=== PATIENT | female | born 1965 | race Caucasian/White ===

== ENCOUNTER → 2016-12-06 | Day surgery (SDC) | payer OTHER ==
[2016-12-04 15:00] LABS: BILIRUBIN NEGATIVE (NEGATIVE); BLOOD NEGATIVE (NEGATIVE); CLARITY CLOUDY (CLEAR); COLOR YELLOW (YELLOW); GLUCOSE NEGATIVE (NEGATIVE); KETONE NEGATIVE (NEGATIVE); LEUKO ESTERASE TRACE (NEGATIVE); NITRITE NEGATIVE (NEGATIVE); PH 5.5 (5.0-9.0); PROTEIN NEGATIVE (NEGATIVE); SPECIFIC GRAVITY 1.025 (1.005-1.030); UROBILINOGEN 0.2 E.U./dl (0.2-1.0)
[2016-12-04 15:07] LABS: BASO # 0.1 10*3/uL (0.0-0.1); BASO % 0.9 % (0.0-1.0); EOS # 0.3 10*3/uL (0.0-0.4); EOS % 3.1 % (1.0-4.0); HEMATOCRIT 41.6 % (37.0-47.0); HEMOGLOBIN 13.5 g/dl (12.0-16.0); LYMPH # 2.8 10*3/uL (1.3-4.4); LYMPH % 31.3 % (27.0-41.0); MEAN CELL VOLUME 88.9 fl (81.0-99.0); MEAN CORPUSCULAR HGB 28.8 pg (27.0-31.0); MEAN CORPUSCULAR HGB CONC 32.5 g/dl (33.0-37.0); MEAN PLATELET VOLUME 10.8 fl (9.6-12.3); MONO # 0.5 10*3/uL (0.1-1.0); MONO % 5.3 % (3.0-9.0); NEUT # 5.3 10*3/uL (2.3-7.9); NEUT % 59.1 % (47.0-73.0); PLATELET COUNT AUTOMATED 255 10*3/uL (130-400); RED BLOOD COUNT 4.68 10*6/uL (4.10-5.10); RED CELL DISTRI WIDTH 13.1 % (0-14.5)
[2016-12-04 15:22] LABS: BACTERIA 3+; YEAST 1+
[2016-12-04 15:34] LABS: ALBUMIN 3.4 gm/dl (3.1-4.5); ALKALINE PHOSPHATASE 84 U/L (45-117); BILIRUBIN, TOTAL 0.2 mg/dl (0.2-1.0); BUN 10 mg/dl (7-24); CARBON DIOXIDE 30 mmol/L (21-32); CHLORIDE 105 mmol/L (98-107); EST GLOM FILT AFRICAN AMERICAN > 60 ml/min; GLUCOSE 108 mg/dL (65-99); POTASSIUM 4.4 mmol/L (3.5-5.1); SGOT/AST 18 IU/L (3-35); SGPT/ALT 24 U/L (12-78); SODIUM 143 mmol/L (136-145); TOTAL PROTEIN 7.3 gm/dL (6.4-8.2)
[2016-12-04 15:35] LABS: BILIRUBIN, DIRECT < 0.1 mg/dL (0.0-0.2); INTERNATIONAL NORM RATIO 0.9 (2.0-3.5); PROTHROMBIN TIME 9.9 SECONDS (9.0-12.4)
[~2016-12-06] VITALS: Ht 160 cm; Wt 117.9 kg
[~2016-12-06] MED LIST: CIPRO500 MG PO; FLEXERIL10 MG PO; HYDROCODONE BIT1 T11 PO; HYDROCODONE BIT1 T20 PO; IBU800 MG PO; LYRICA150 MG PO; METRONIDAZOLE500 M1 PO; MOTRIN600 MG PO; NAPROSYN500 MG PO; NAPROXEN500 MG PO; NEURONTIN100 MG PO; NEURONTIN300 MG PO; NORCO 325 MG-51 TAB PO; NORCO 5-325 TA1 EACH PO; PAMELOR25 MG PO; PARAFON FORTE500 MG PO; ROBAXIN750 MG PO; TENORMIN25 MG PO; TRAMADOL HCL50 MG PO; XANAX0.25 MG PO; ZOFRAN4 MG PO
--- NOTE | ~2016-12-06 | O ---
[place], [place] OPERATIVE NOTE NAME: [id number] UNIT #: [id number] ROOM: DOCTOR: AMMON BRENNAN MD BIRTHDATE: [birth year] DOS: 12/06/2016 PREOPERATIVE DIAGNOSIS: Acute cholecystitis. POSTOPERATIVE DIAGNOSIS: Acute cholecystitis. PROCEDURE: Laparoscopic cholecystectomy. SURGEON: Ammon Brennan MD WARP DRAWER: MS3. ANESTHESIA: General with endotracheal intubation. INDICATIONS: This is a 51-year-old lady with a history of acute cholecystitis who is here for the above-mentioned procedure. The procedure and its complications were explained to the patient in detail preoperatively. Complications that were discussed included but were not limited to bleeding, infection, hematoma/seroma/abscess formation, prolonged postoperative pain, damage to underlying vital structures, inadvertent injury to the common bile duct and incisional hernia formation. She agreed to proceed. DESCRIPTION OF PROCEDURE: After identifying the patient, the patient was brought to the operating suite and laid in the supine position. After induction of general anesthesia, a timeout procedure was called and the parts were then painted and draped in the usual sterile fashion. An incision in a curvilinear fashion was made under the umbilicus. The skin and the subcutaneous tissue were incised in the line of the incision. The fascia was incised and the peritoneum was opened. After 2 stay sutures were taken with 0 Vicryl on either side of the fascia, a Farhana port was introduced and a pneumoperitoneum was created. Under direct vision, an epigastric incision of 10 mm and two 5 mm incisions were made in the right upper quadrant and appropriate size ports were introduced. The gallbladder was retracted superiorly and laterally. The cystic duct and the cystic artery were meticulously dissected until the critical view of safety was obtained and the triangle of Calot was identified. Thereafter each of these structures were clipped 3 times and cut between the first and the second clip. The gallbladder was removed from the bed of the gallbladder with the help of electrocautery in order to better expedite the process. Another 5 mm port was introduced in the right upper quadrant in order to retract the liver. After the gallbladder was removed from the bed of the gallbladder it was removed from the peritoneal cavity and sent for histopathological diagnosis. Hemostasis was achieved with the help of electrocautery. Thereafter in order to expedite the hemostasis process a single sheet of Surgicel was placed in the liver bed. Hemostasis was confirmed again and fluid was sucked out. Hemostasis was again looked at and there was no active bleeding. At this point, the right upper quadrant and the epigastric ports were removed and there was no bleeding seen. The umbilical port was removed and the fascial defect was approximated with the help of 0 Vicryl sutures on either side. The skin edges were infiltrated with local anesthesia and approximated with the help of 4-0 Vicryl in a subcuticular running fashion. Dressings were given to all the 5 incisions. [place], [place] OPERATIVE NOTE NAME: LARON ARANA [facility] UNIT #: [id number] ROOM: DOCTOR: AMMON BRENNAN MD BIRTHDATE: [birth year] The patient tolerated the procedure well. There were no complications. Blood loss was [address] Ammon Brennan, the attending surgeon, was present throughout the operating case. Ammon Brennan MD CM:OPRECORD:OPERATIVE NOTE [phone] AMMON BRENNAN MD 12/06/16 1024 interface
== END | disposition home or self-care (01) ==
LOC: SDC 12-04 12:30
PROVIDERS: Surgery
DX: K81.1 Chronic cholecystitis (principal); Z87.01 Personal history of pneumonia (recurrent); M79.7 Fibromyalgia; Z83.3 Family history of diabetes mellitus; Z82.49 Family history of ischemic heart disease and other diseases of the circulatory system; Z82.3 Family history of stroke; Z80.9 Family history of malignant neoplasm, unspecified

== ENCOUNTER 2016-12-10 14:10 | Inpatient (IN) | payer OTHER ==
[~2016-12-10] VITALS: Ht 160 cm; Wt 118.9 kg
[2016-12-10 14:18] VITALS: BP 152/101
[2016-12-10 15:01] LABS: BASO # 0.1 10*3/uL (0.0-0.1); BASO % 0.6 % (0.0-1.0); EOS # 0.3 10*3/uL (0.0-0.4); EOS % 2.6 % (1.0-4.0); HEMATOCRIT 38.2 % (37.0-47.0); HEMOGLOBIN 12.8 g/dl (12.0-16.0); LYMPH # 2.2 10*3/uL (1.3-4.4); LYMPH % 22.5 % (27.0-41.0); MEAN CELL VOLUME 85.1 fl (81.0-99.0); MEAN CORPUSCULAR HGB 28.5 pg (27.0-31.0); MEAN CORPUSCULAR HGB CONC 33.5 g/dl (33.0-37.0); MEAN PLATELET VOLUME 10.2 fl (9.6-12.3); MONO # 0.6 10*3/uL (0.1-1.0); MONO % 5.9 % (3.0-9.0); NEUT # 6.7 10*3/uL (2.3-7.9); NEUT % 68.2 % (47.0-73.0); PLATELET COUNT AUTOMATED 243 10*3/uL (130-400); RED BLOOD COUNT 4.49 10*6/uL (4.10-5.10); RED CELL DISTRI WIDTH 12.9 % (0-14.5); WHITE BLOOD COUNT 9.8 10*3/uL (4.8-10.8)
[2016-12-10 15:15] LABS: ALBUMIN 3.2 gm/dl (3.1-4.5); ALKALINE PHOSPHATASE 85 U/L (45-117); BILIRUBIN, TOTAL 0.3 mg/dl (0.2-1.0); BUN 9 mg/dl (7-24); C-REACTIVE PROTEIN 4.53 MG/DL (0-0.3); CARBON DIOXIDE 27 mmol/L (21-32); CHLORIDE 104 mmol/L (98-107); EST GLOM FILT AFRICAN AMERICAN > 60 ml/min; GLUCOSE 113 mg/dL (65-99); POTASSIUM 3.8 mmol/L (3.5-5.1); SGOT/AST 32 IU/L (3-35); SGPT/ALT 44 U/L (12-78); SODIUM 141 mmol/L (136-145); TOTAL PROTEIN 7.2 gm/dL (6.4-8.2)
[2016-12-10 17:44] VITALS: BP 134/87
[2016-12-10 18:00] VITALS: BP 176/95
[2016-12-10 20:00] VITALS: BP 130/74
[2016-12-11] VITALS: BP 131/68
[2016-12-11 06:44] LABS: HEMOGLOBIN A1c 5.5 % (4.8-5.6)
[2016-12-11 06:48] LABS: BASO # 0.1 10*3/uL (0.0-0.1); BASO % 0.6 % (0.0-1.0); EOS # 0.1 10*3/uL (0.0-0.4); EOS % 1.4 % (1.0-4.0); HEMATOCRIT 37.4 % (37.0-47.0); HEMOGLOBIN 12.2 g/dl (12.0-16.0); IG # 0.1 10*3/uL (0.0-0.1); LYMPH # 1.3 10*3/uL (1.3-4.4); LYMPH % 14.1 % (27.0-41.0); MEAN CORPUSCULAR HGB CONC 32.6 g/dl (33.0-37.0); MEAN PLATELET VOLUME 10.6 fl (9.6-12.3); MONO # 0.5 10*3/uL (0.1-1.0); MONO % 5.1 % (3.0-9.0); NEUT # 7.3 10*3/uL (2.3-7.9); NEUT % 78.3 % (47.0-73.0); PLATELET COUNT AUTOMATED 209 10*3/uL (130-400); RED BLOOD COUNT 4.21 10*6/uL (4.10-5.10); WHITE BLOOD COUNT 9.3 10*3/uL (4.8-10.8)
[2016-12-11 06:49] LABS: ALKALINE PHOSPHATASE 75 U/L (45-117); BILIRUBIN, TOTAL 0.4 mg/dl (0.2-1.0); BUN 7 mg/dl (7-24); CARBON DIOXIDE 27 mmol/L (21-32); CHLORIDE 102 mmol/L (98-107); CHOLESTEROL 216 mg/dL (<200); EST GLOM FILT AFRICAN AMERICAN > 60 ml/min; GLUCOSE 144 mg/dL (65-99); HDL CHOLESTEROL 44 mg/dl (40-60); LDL CHOLESTEROL 142 mg/dL (9-159); MAGNESIUM 1.8 mg/dL (1.5-2.1); PHOSPHOROUS 3.3 mg/dL (2.5-4.9); POTASSIUM 3.9 mmol/L (3.5-5.1); SGOT/AST 24 IU/L (3-35); SGPT/ALT 35 U/L (12-78); SODIUM 140 mmol/L (136-145); TOTAL PROTEIN 6.8 gm/dL (6.4-8.2); TRIGLYCERIDES 148 mg/dl (<150); VLDL CHOLESTEROL 30 mg/dL (6-40)
[2016-12-11 06:50] LABS: MEAN CELL VOLUME 88.8 fl (81.0-99.0)
[2016-12-11 06:57] LABS: PROTHROMBIN TIME 10.5 SECONDS (9.0-12.4)
[2016-12-11 07:47] LABS: FOLIC ACID 12.17 ng/mL (>5.38)
[2016-12-11 08:00] VITALS: BP 138/94
[2016-12-11 12:00] VITALS: BP 147/85
[2016-12-11 13:08] LABS: BILIRUBIN NEGATIVE (NEGATIVE); BLOOD NEGATIVE (NEGATIVE); CLARITY SL CLOUDY (CLEAR); COLOR YELLOW (YELLOW); GLUCOSE NEGATIVE (NEGATIVE); KETONE NEGATIVE (NEGATIVE); LEUKO ESTERASE NEGATIVE (NEGATIVE); NITRITE NEGATIVE (NEGATIVE); PH 6.5 (5.0-9.0); PROTEIN NEGATIVE (NEGATIVE); SPECIFIC GRAVITY >= 1.030 (1.005-1.030); UROBILINOGEN 0.2 E.U./dl (0.2-1.0)
[2016-12-11 13:37] LABS: BACTERIA 2+; MUCOUS 1+; URINE REFLEX COMMENT YES (NO); YEAST TRACE
[2016-12-11 16:00] VITALS: BP 135/82
[2016-12-11 20:30] VITALS: BP 150/88
[2016-12-12] VITALS: BP 146/95
[2016-12-12 06:42] LABS: BASO % 0.2 % (0.0-1.0); EOS # 0.2 10*3/uL (0.0-0.4); EOS % 1.8 % (1.0-4.0); HEMATOCRIT 35.7 % (37.0-47.0); HEMOGLOBIN 11.5 g/dl (12.0-16.0); LYMPH # 2.1 10*3/uL (1.3-4.4); LYMPH % 23.8 % (27.0-41.0); MEAN CELL VOLUME 87.7 fl (81.0-99.0); MEAN CORPUSCULAR HGB 28.3 pg (27.0-31.0); MEAN CORPUSCULAR HGB CONC 32.2 g/dl (33.0-37.0); MEAN PLATELET VOLUME 9.9 fl (9.6-12.3); MONO # 0.6 10*3/uL (0.1-1.0); MONO % 6.7 % (3.0-9.0); NEUT # 5.8 10*3/uL (2.3-7.9); NEUT % 67.2 % (47.0-73.0); PLATELET COUNT AUTOMATED 221 10*3/uL (130-400); RED BLOOD COUNT 4.07 10*6/uL (4.10-5.10); RED CELL DISTRI WIDTH 12.8 % (0-14.5); WHITE BLOOD COUNT 8.7 10*3/uL (4.8-10.8)
[2016-12-12 07:16] LABS: BUN 7 mg/dl (7-24); CARBON DIOXIDE 30 mmol/L (21-32); CHLORIDE 105 mmol/L (98-107); EST GLOM FILT AFRICAN AMERICAN > 60 ml/min; GLUCOSE 90 mg/dL (65-99); POTASSIUM 3.9 mmol/L (3.5-5.1); SODIUM 143 mmol/L (136-145)
[2016-12-12 08:00] VITALS: BP 122/80; BP 141/85
[2016-12-12 12:00] VITALS: BP 145/89
[2016-12-12] MEDS ORDERED: NORCO 5-325 TA1 EACH PO (13:57)
[2016-12-12] MEDS ORDERED: PANTOPRAZOLE SO40 MG PO (13:57)
[2016-12-12] MEDS ORDERED: FLAGYL500 MG PO (13:57)
[2016-12-12] MEDS ORDERED: IMITREX25 M1 PO (13:57)
[2016-12-12] MEDS ORDERED: CIPRO500 MG PO (13:57)
== END 2016-12-12 14:32 | disposition home or self-care (01) | DRG 394 ==
LOC: ED 14:10 → 4E 16:46 → EDHOLD 16:46 → 4E 17:20
PROVIDERS: Hospitalist; Internal Medicine; Physician Assistant
DX: K91.89 Other postprocedural complications and disorders of digestive system (principal); E44.0 Moderate protein-calorie malnutrition; L02.211 Cutaneous abscess of abdominal wall; Z68.42 Body mass index [BMI] 45.0-49.9, adult; G43.909 Migraine, unspecified, not intractable, without status migrainosus; K21.9 Gastro-esophageal reflux disease without esophagitis; I10 Essential (primary) hypertension; E66.9 Obesity, unspecified; R00.0 Tachycardia, unspecified; R73.9 Hyperglycemia, unspecified; M54.5 Low back pain; M79.7 Fibromyalgia; Z80.9 Family history of malignant neoplasm, unspecified; Z79.1 Long term (current) use of non-steroidal anti-inflammatories (NSAID); Z79.899 Other long term (current) drug therapy

== ENCOUNTER → 2016-12-31 | Outpatient (CLI) | payer OTHER ==
[~2016-12-31] MED LIST changes: +FLAGYL500 MG PO; +IMITREX25 M1 PO; +PANTOPRAZOLE SO40 MG PO
== END | disposition home or self-care (01) ==
LOC: RESCLI 02:01
DX: H81.10 Benign paroxysmal vertigo, unspecified ear (principal); R20.2 Paresthesia of skin; F51.01 Primary insomnia; M79.672 Pain in left foot; K59.00 Constipation, unspecified; T81.4XXA Infection following a procedure, initial encounter

== ENCOUNTER → 2017-01-04 | Day surgery (SDC) | payer OTHER ==
[~2017-01-04] VITALS: Ht 160 cm; Wt 112.9 kg
[~2017-01-04] MED LIST changes: +MELATONIN10 M4 PO
--- NOTE | ~2017-01-04 | PROC NOTE ---
[place], [place] PROCEDURE NOTE [id number] UNIT #: [id number] ROOM: DOCTOR: AMMON BRENNAN MD BIRTHDATE: [birth year] DOS: 01/04/2017 PREOPERATIVE DIAGNOSIS: History of diverticulosis. POSTOPERATIVE DIAGNOSIS: History of diverticulosis. PROCEDURE: Flexible sigmoidoscopy. ENDOSCOPIST: Dr. Ammon Brennan. AUXILIARY POWER EQUIPMENT OPERATOR: PGY1. ANESTHESIA: MAC. INDICATIONS: This is a 51-year-old lady with a previous history of diverticulosis, who is here for the above-mentioned procedure. The procedure and its complications were explained to the patient in detail. Complications that were discussed included but were not limited to bleeding, missed lesions and colon perforation. She agreed to proceed. DESCRIPTION OF PROCEDURE: After identifying the patient, the patient was brought to the endoscopy suite and placed in the left lateral position. After IV sedation was administered, a timeout procedure was called. A digital rectal exam was performed, which was within normal limits. An adult colonoscope was now introduced into the anal canal and advanced sequentially into the rectum, sigmoid colon up to 30 cm. The prep was found to be very suboptimal and nonvisualization of the rest of the colon was the reason why this procedure was aborted despite multiple attempts at cleaning the colonic lumen with saline. There were no obvious lesions seen until about approximately 30 cm from the anal verge. The scope was then withdrawn, and the patient was taken to the recovery room in stable fashion. Based on these findings, the patient is recommended to return back for another colonoscopy in the next 4-6 months with possibly a different prep. These findings were discussed with the patient's mother postoperatively, and I will discuss this with the patient herself, and she sees me in the office in 2-3 weeks. Ammon Brennan MD CM:PROCNOTE:PROCEDURE NOTE [id number] AMOMN BRENNAN MD
[2017-01-04 09:30] VITALS: BP 148/85
[2017-01-04 10:23] VITALS: BP 124/82
[2017-01-04 10:38] VITALS: BP 150/90
[2017-01-04 10:53] VITALS: BP 152/92
== END | disposition home or self-care (01) ==
LOC: SDC 12-31 08:00
DX: K57.30 Diverticulosis of large intestine without perforation or abscess without bleeding (principal); M79.7 Fibromyalgia; Z87.01 Personal history of pneumonia (recurrent); Z86.14 Personal history of Methicillin resistant Staphylococcus aureus infection; Z83.3 Family history of diabetes mellitus; Z80.9 Family history of malignant neoplasm, unspecified; Z82.3 Family history of stroke; Z82.49 Family history of ischemic heart disease and other diseases of the circulatory system; Z53.8 Procedure and treatment not carried out for other reasons

== ENCOUNTER → 2017-01-14 | Outpatient (CLI) | payer OTHER | END | disposition home or self-care (01) | LOC: RESCLI 02:01 | DX: I10 Essential (primary) hypertension (principal); F51.01 Primary insomnia; R20.2 Paresthesia of skin; M79.7 Fibromyalgia; K59.00 Constipation, unspecified; M62.838 Other muscle spasm; M79.672 Pain in left foot ==

== ENCOUNTER 2017-01-21 14:04 | Emergency (ER) | payer OTHER ==
[2017-01-21] MEDS ORDERED: CLINDAMYCIN150 MG PO (14:25)
== END 2017-01-21 14:40 | disposition home or self-care (01) ==
LOC: ED 14:04
DX: T81.4XXA Infection following a procedure, initial encounter (principal); M79.7 Fibromyalgia; I10 Essential (primary) hypertension; E66.9 Obesity, unspecified; Z68.39 Body mass index [BMI] 39.0-39.9, adult; Z90.49 Acquired absence of other specified parts of digestive tract; Y92.9 Unspecified place or not applicable

== ENCOUNTER → 2017-03-13 | Outpatient (CLI) | payer OTHER ==
[~2017-03-13] MED LIST changes: +CLINDAMYCIN150 MG PO
[2017-03-13 11:27] LABS: BASO # 0.1 10*3/uL (0.0-0.1); BASO % 0.6 % (0.0-1.0); EOS # 0.2 10*3/uL (0.0-0.4); EOS % 2.5 % (1.0-4.0); HEMATOCRIT 39.7 % (37.0-47.0); HEMOGLOBIN 12.7 g/dl (12.0-16.0); LYMPH # 1.9 10*3/uL (1.3-4.4); LYMPH % 23.7 % (27.0-41.0); MEAN CELL VOLUME 85.4 fl (81.0-99.0); MEAN CORPUSCULAR HGB 27.3 pg (27.0-31.0); MEAN PLATELET VOLUME 10.2 fl (9.6-12.3); MONO # 0.3 10*3/uL (0.1-1.0); MONO % 4.1 % (3.0-9.0); NEUT # 5.6 10*3/uL (2.3-7.9); PLATELET COUNT AUTOMATED 228 10*3/uL (130-400); RED BLOOD COUNT 4.65 10*6/uL (4.10-5.10); RED CELL DISTRI WIDTH 12.9 % (0-14.5); WHITE BLOOD COUNT 8.1 10*3/uL (4.8-10.8)
[2017-03-13 11:52] LABS: C-REACTIVE PROTEIN 1.57 MG/DL (0-0.3); URIC ACID 4.9 mg/dL (2.6-6.0)
[2017-03-14 08:23] LABS: RHEUMATOID ARTHRITIS FACTOR <10.0 IU/mL (0.0-13.9)
== END | disposition home or self-care (01) ==
LOC: ORTHO 00:36
PROVIDERS: Orthopaedic Surgery
DX: R53.83 Other fatigue (principal); R52 Pain, unspecified

== ENCOUNTER → 2017-04-10 | Outpatient (CLI) | payer OTHER | END | disposition home or self-care (01) | LOC: RESCLI 09:37 | DX: F51.01 Primary insomnia (principal); M17.0 Bilateral primary osteoarthritis of knee; M79.7 Fibromyalgia; I10 Essential (primary) hypertension; R53.83 Other fatigue; M25.511 Pain in right shoulder; M25.512 Pain in left shoulder ==

== ENCOUNTER → 2017-06-12 | Outpatient (CLI) | payer OTHER | END | disposition home or self-care (01) | LOC: RESCLI 01:39 | DX: S69.92XA Unspecified injury of left wrist, hand and finger(s), initial encounter (principal); M79.7 Fibromyalgia; R21 Rash and other nonspecific skin eruption; M72.2 Plantar fascial fibromatosis; F51.01 Primary insomnia; G56.00 Carpal tunnel syndrome, unspecified upper limb; E66.01 Morbid (severe) obesity due to excess calories; M19.90 Unspecified osteoarthritis, unspecified site; X58.XXXA Exposure to other specified factors, initial encounter; Y93.89 Activity, other specified; Y92.89 Other specified places as the place of occurrence of the external cause; Y99.8 Other external cause status ==

== ENCOUNTER → 2017-06-24 | Outpatient (CLI) | payer OTHER | END | disposition home or self-care (01) | LOC: RESCLI 03:19 | DX: M79.7 Fibromyalgia (principal); B37.2 Candidiasis of skin and nail; F51.01 Primary insomnia; E66.9 Obesity, unspecified; G56.00 Carpal tunnel syndrome, unspecified upper limb; M19.90 Unspecified osteoarthritis, unspecified site ==

== ENCOUNTER → 2017-07-09 | Outpatient (CLI) | payer OTHER | END | disposition home or self-care (01) | LOC: RESCLI 02:56 | DX: M19.90 Unspecified osteoarthritis, unspecified site (principal); M79.7 Fibromyalgia; B37.2 Candidiasis of skin and nail; F51.01 Primary insomnia; E66.01 Morbid (severe) obesity due to excess calories; G56.03 Carpal tunnel syndrome, bilateral upper limbs; R21 Rash and other nonspecific skin eruption; R00.0 Tachycardia, unspecified ==

== ENCOUNTER → 2017-08-07 | Outpatient (CLI) | payer OTHER | LOC: RESCLI 09:09 | DX: M79.7 Fibromyalgia (principal); B37.2 Candidiasis of skin and nail; F51.01 Primary insomnia; M19.90 Unspecified osteoarthritis, unspecified site; E66.01 Morbid (severe) obesity due to excess calories; G56.03 Carpal tunnel syndrome, bilateral upper limbs; R21 Rash and other nonspecific skin eruption; R00.0 Tachycardia, unspecified ==

== ENCOUNTER → 2017-08-08 | Outpatient (CLI) | payer OTHER | END | disposition home or self-care (01) | LOC: ORTHO 00:55 | DX: M25.531 Pain in right wrist (principal) ==

== ENCOUNTER → 2017-09-10 | Outpatient (CLI) | payer OTHER | END | disposition home or self-care (01) | LOC: RESCLI 02:11 | DX: G47.00 Insomnia, unspecified (principal); R53.83 Other fatigue; G56.03 Carpal tunnel syndrome, bilateral upper limbs; M79.7 Fibromyalgia; B37.2 Candidiasis of skin and nail; M25.531 Pain in right wrist; L40.9 Psoriasis, unspecified ==

== ENCOUNTER → 2017-12-10 | Outpatient (CLI) | payer OTHER | END | disposition home or self-care (01) | LOC: RESCLI 04:17 | DX: I10 Essential (primary) hypertension (principal); M79.7 Fibromyalgia; M19.90 Unspecified osteoarthritis, unspecified site; R53.83 Other fatigue; E66.01 Morbid (severe) obesity due to excess calories; L40.9 Psoriasis, unspecified; R52 Pain, unspecified; B37.2 Candidiasis of skin and nail ==

== ENCOUNTER 2018-01-14 15:02 | Emergency (ER) | payer OTHER ==
[~2018-01-14] VITALS: Ht 162.5 cm; Wt 90.7 kg
[2018-01-14 16:11] LABS: BASO % 0.4 % (0.0-1.0); EOS % 0.4 % (1.0-4.0); HEMATOCRIT 40.6 % (37.0-47.0); HEMOGLOBIN 12.7 g/dl (12.0-16.0); LYMPH # 1.8 10*3/uL (1.3-4.4); LYMPH % 17.5 % (27.0-41.0); MEAN CORPUSCULAR HGB 25.3 pg (27.0-31.0); MEAN CORPUSCULAR HGB CONC 31.3 g/dl (33.0-37.0); MEAN PLATELET VOLUME 9.2 fl (9.6-12.3); MONO # 0.6 10*3/uL (0.1-1.0); MONO % 6.3 % (3.0-9.0); NEUT # 7.6 10*3/uL (2.3-7.9); PLATELET COUNT AUTOMATED 315 10*3/uL (130-400); RED BLOOD COUNT 5.01 10*6/uL (4.10-5.10); RED CELL DISTRI WIDTH 14.5 % (0-14.5); WHITE BLOOD COUNT 10.1 10*3/uL (4.8-10.8)
[2018-01-14 16:26] LABS: ALBUMIN 3.1 gm/dl (3.1-4.5); ALKALINE PHOSPHATASE 107 U/L (45-117); BUN 8 mg/dl (7-24); CHLORIDE 104 mmol/L (98-107); LIPASE 79 U/L (73-393); POTASSIUM 3.6 mmol/L (3.5-5.1); SGOT/AST 16 IU/L (3-35); SGPT/ALT 12 U/L (12-78); SODIUM 138 mmol/L (136-145); TOTAL PROTEIN 8.1 gm/dL (6.4-8.2)
[2018-01-14 17:20] LABS: BILIRUBIN NEGATIVE (NEGATIVE); BLOOD 3+ (NEGATIVE); CLARITY SL CLOUDY (CLEAR); COLOR YELLOW (YELLOW); GLUCOSE NEGATIVE (NEGATIVE); KETONE NEGATIVE (NEGATIVE); LEUKO ESTERASE 1+ (NEGATIVE); NITRITE NEGATIVE (NEGATIVE); UROBILINOGEN 0.2 E.U./dl (0.2-1.0)
[2018-01-14 17:44] LABS: BACTERIA 1+; EPITHELIAL CELLS TNTC; RBC TNTC rbc/hpf (0-2); WBC 16-20 wbc/hpf (0-5)
[2018-01-14] MEDS ORDERED: KETOROLAC10 MG PO (18:00)
[2018-01-14] MEDS ORDERED: MACROBID100 M1 PO (18:00)
[2018-01-14] MEDS ORDERED: FLOMAX0.4 MG PO (18:00)
== END 2018-01-14 18:20 | disposition home or self-care (01) ==
LOC: ED 15:02
PROVIDERS: Nurse Practitioner
DX: N30.01 Acute cystitis with hematuria (principal); N20.0 Calculus of kidney

== ENCOUNTER → 2018-01-29 | Outpatient (CLI) | payer OTHER ==
[~2018-01-29] MED LIST changes: +FLOMAX0.4 MG PO; +KETOROLAC10 MG PO; +MACROBID100 M1 PO
[2018-01-30 08:23] LABS: RHEUMATOID ARTHRITIS FACTOR <10.0 IU/mL (0.0-13.9)
[2018-01-30 12:07] LABS: ANTI-SMOOTH MUSCLE ANTIBODY 9 Units (0-19)
== END | disposition home or self-care (01) ==
LOC: LAB 11:08
PROVIDERS: Internal Medicine
DX: M17.10 Unilateral primary osteoarthritis, unspecified knee (principal)

== ENCOUNTER → 2018-02-03 | Outpatient (CLI) | payer OTHER | END | disposition home or self-care (01) | LOC: CT 02:35 | DX: N28.89 Other specified disorders of kidney and ureter (principal); Z90.49 Acquired absence of other specified parts of digestive tract; N20.0 Calculus of kidney ==

== ENCOUNTER 2018-02-09 16:42 | Emergency (ER) | payer OTHER ==
[2018-02-09] MEDS ORDERED: Motrin,Rufen800 MG PO (18:49)
== END 2018-02-09 18:45 | disposition home or self-care (01) ==
LOC: ED 16:42
DX: S60.222A Contusion of left hand, initial encounter (principal); S40.012A Contusion of left shoulder, initial encounter; S00.83XA Contusion of other part of head, initial encounter; Z79.899 Other long term (current) drug therapy; W10.8XXA Fall (on) (from) other stairs and steps, initial encounter; Y93.89 Activity, other specified; Y92.89 Other specified places as the place of occurrence of the external cause; Y99.8 Other external cause status

== ENCOUNTER → 2018-02-21 | Day surgery (SDC) | payer OTHER ==
[~2018-02-21] VITALS: Ht 160 cm; Wt 113.4 kg
[~2018-02-21] MED LIST changes: +Motrin,Rufen800 MG PO
--- NOTE | ~2018-02-21 | PROC NOTE ---
[place], [place] PROCEDURE NOTE [id number] UNIT #: [id number] ROOM: DOCTOR: AMMON BRENNAN MD BIRTHDATE: [birth year] DOS: 02/21/2018 PREOPERATIVE DIAGNOSIS: Lower gastrointestinal bleed. POSTOPERATIVE DIAGNOSES: Diverticulosis, colonic polyps (55 cm, 65 cm from the anal verge). PROCEDURE: Colonoscopy with polypectomy x 2. ENDOSCOPIST: Ammon Brennan MD CARE COMPANION: LAINEY. ANESTHESIA: MAC. INDICATIONS: This is a 52-year-old lady with a history of lower GI bleed who is here for a colonoscopy. The procedure and its complications were explained to the patient in detail preoperatively. Complications that were discussed included, but were not limited to bleeding, colon perforation, missed lesions and prolonged pain. She agreed to proceed. DESCRIPTION OF PROCEDURE: After identifying the patient, the patient was brought to the operating suite and laid in the left lateral position. After IV sedation was administered, a timeout procedure was called and a digital rectal exam was performed. This was within normal limits and there was no blood on the examining finger. At this point, an adult colonoscope was introduced into the anal canal and advanced sequentially into the rectum, sigmoid colon, descending colon, transverse colon, ascending colon up to the cecum. The prep was found to be optimal. There were two polyps seen, one at 55 cm from the anal verge, which was the larger of the two and the other one at 65 cm. Both these polyps were removed with the help of a snare and sent for histopathological diagnosis. There was also found to be diverticulosis mainly in the sigmoid colon and minor diverticulosis in the transverse colon. Upon reaching the cecum, the scope was withdrawn. Total withdrawal time was approximately 8 minutes. Upon withdrawal of the scope, patient was brought back to the recovery in a stable fashion. There were no complications. Dr. Ammon Brennan, the attending endoscopist, was present throughout the operating case. Based on this finding, the patient is recommended to have another colonoscopy in 1-3 years or sooner if the patient has new symptoms. These findings were discussed with the patient's mother in the postoperative recovery area and also will be discussed with the patient herself in the postoperative period in the office. [place], [place] PROCEDURE NOTE NAME: LARON ARANA UNIT #: [id number] ROOM: DOCTOR: MIKA QUINONES,AMMON BIRTHDATE: [birth year] Ammon Brennan MD CM:PROCNOTE:PROCEDURE NOTE [id number] AMMON BRENNAN MD
[2018-02-21 08:33] VITALS: BP 115/69
[2018-02-21 08:48] VITALS: BP 117/79
[2018-02-21 09:03] VITALS: BP 116/72
== END | disposition home or self-care (01) ==
LOC: SDC 02-03 14:00
DX: D12.5 Benign neoplasm of sigmoid colon (principal); D12.4 Benign neoplasm of descending colon; K57.30 Diverticulosis of large intestine without perforation or abscess without bleeding; M79.7 Fibromyalgia; M54.2 Cervicalgia; G89.29 Other chronic pain; H81.10 Benign paroxysmal vertigo, unspecified ear; M19.90 Unspecified osteoarthritis, unspecified site; E66.09 Other obesity due to excess calories; Z90.49 Acquired absence of other specified parts of digestive tract; Z79.899 Other long term (current) drug therapy; Z98.890 Other specified postprocedural states; Z83.3 Family history of diabetes mellitus; Z80.8 Family history of malignant neoplasm of other organs or systems; Z82.49 Family history of ischemic heart disease and other diseases of the circulatory system; Z80.41 Family history of malignant neoplasm of ovary; Z68.41 Body mass index [BMI] 40.0-44.9, adult

== ENCOUNTER → 2018-06-11 | Outpatient (CLI) | payer OTHER ==
[2018-06-11 09:27] LABS: BASO # 0.1 10*3/uL (0.0-0.1); BASO % 0.5 % (0.0-1.0); EOS # 0.3 10*3/uL (0.0-0.4); EOS % 3.3 % (1.0-4.0); HEMATOCRIT 40.9 % (37.0-47.0); HEMOGLOBIN 12.7 g/dl (12.0-16.0); LYMPH # 2.1 10*3/uL (1.3-4.4); MEAN CELL VOLUME 84.9 fl (81.0-99.0); MEAN CORPUSCULAR HGB 26.3 pg (27.0-31.0); MEAN CORPUSCULAR HGB CONC 31.1 g/dl (33.0-37.0); MEAN PLATELET VOLUME 9.5 fl (9.6-12.3); MONO # 0.5 10*3/uL (0.1-1.0); MONO % 5.2 % (3.0-9.0); NEUT # 6.2 10*3/uL (2.3-7.9); NEUT % 67.8 % (47.0-73.0); PLATELET COUNT AUTOMATED 262 10*3/uL (130-400); RED BLOOD COUNT 4.82 10*6/uL (4.10-5.10); RED CELL DISTRI WIDTH 13.5 % (0-14.5); WHITE BLOOD COUNT 9.1 10*3/uL (4.8-10.8)
[2018-06-11 09:58] LABS: ALBUMIN 3.2 gm/dl (3.1-4.5); ALKALINE PHOSPHATASE 108 U/L (45-117); BUN 9 mg/dl (7-24); CHLORIDE 104 mmol/L (98-107); CHOLESTEROL 220 mg/dL (<200); CREATININE 0.81 mg/dL (0.55-1.02); HDL CHOLESTEROL 42 mg/dl (40-60); LDL CHOLESTEROL 152 mg/dL (9-159); POTASSIUM 4.1 mmol/L (3.5-5.1); SGOT/AST 12 IU/L (3-35); SGPT/ALT 14 U/L (12-78); SODIUM 139 mmol/L (136-145); TOTAL PROTEIN 7.5 gm/dL (6.4-8.2); TRIGLYCERIDES 128 mg/dl (<150); VLDL CHOLESTEROL 26 mg/dL (6-40)
== END | disposition home or self-care (01) ==
LOC: LAB 08:32
PROVIDERS: Internal Medicine
DX: M19.90 Unspecified osteoarthritis, unspecified site (principal); I10 Essential (primary) hypertension; R60.0 Localized edema; R21 Rash and other nonspecific skin eruption; R29.898 Other symptoms and signs involving the musculoskeletal system

== ENCOUNTER → 2018-06-18 | Outpatient (CLI) | payer OTHER ==
[2018-06-18 11:48] LABS: VITAMIN D, 25-HYDROXY 31.1 ng/mL (30-100)
[2018-06-19 08:10] LABS: RHEUMATOID ARTHRITIS FACTOR <10.0 IU/mL (0.0-13.9)
[2018-06-19 12:05] LABS: HEPATITIS B SURFACE AB 006395 Non Reactive (.); HEPATITIS Be ANTIGEN 006619 Negative (Negative)
[2018-06-19 17:09] LABS: AB TO HEPATITIS Be AG 006635 Negative (Negative)
[2018-06-19 22:02] LABS: CCP ANTIBODIES IGG/IGA 5 units (0-19)
[2018-06-20 01:02] LABS: HEPATITIS B QNT HBV DNA not detected IU/mL (.)
[2018-06-20 07:03] LABS: IGG SUBCLASS 1 572 mg/dL (248-810); IGG SUBCLASS 2 251 mg/dL (130-555); IGG SUBCLASS 3 65 mg/dL (15-102); IGG SUBCLASS 4 44 mg/dL (2-96); IMMUNOGLOBULIN G, QNT 1014 mg/dL (700-1600)
[2018-06-20 10:06] LABS: TOTAL PROTEIN, SERUM 6.8 g/dL (6.0-8.5)
[2018-06-20 15:06] LABS: A/G RATIO 1.1 (0.7-1.7); ALBUMIN 3.6 g/dL (2.9-4.4); ALPHA-1-GLOBULIN 0.2 g/dL (0.0-0.4); ALPHA-2-GLOBULIN 0.9 g/dL (0.4-1.0); BETA GLOBULIN 1.2 g/dL (0.7-1.3); GAMMA GLOBULIN 0.9 g/dL (0.4-1.8); GLOBULIN, TOTAL 3.2 g/dL (2.2-3.9); M-SPIKE Not Observed g/dL (Not Observed)
[2018-06-24 15:06] LABS: HLA-B27 ANTIGEN Negative (.)
== END | disposition home or self-care (01) ==
LOC: LAB 10:12
PROVIDERS: Internal Medicine
DX: M25.541 Pain in joints of right hand (principal); M25.542 Pain in joints of left hand; M25.642 Stiffness of left hand, not elsewhere classified; M25.641 Stiffness of right hand, not elsewhere classified; R21 Rash and other nonspecific skin eruption

== ENCOUNTER → 2018-06-19 | Outpatient (CLI) | payer OTHER | END | disposition home or self-care (01) | LOC: RESCLI 08:59 | DX: I10 Essential (primary) hypertension (principal); B37.2 Candidiasis of skin and nail; R21 Rash and other nonspecific skin eruption; L40.50 Arthropathic psoriasis, unspecified; M79.7 Fibromyalgia; M19.90 Unspecified osteoarthritis, unspecified site; G47.00 Insomnia, unspecified; R60.9 Edema, unspecified; Z98.890 Other specified postprocedural states; Z79.899 Other long term (current) drug therapy ==

== ENCOUNTER → 2018-06-27 | Outpatient (CLI) | payer OTHER | END | disposition home or self-care (01) | LOC: RAD 13:36 | DX: M17.0 Bilateral primary osteoarthritis of knee (principal); M25.551 Pain in right hip; M25.552 Pain in left hip ==

== ENCOUNTER → 2018-07-04 | Outpatient (CLI) | payer OTHER | END | disposition home or self-care (01) | LOC: CARD 07-03 14:00 | DX: R60.0 Localized edema (principal) ==

== ENCOUNTER → 2018-07-16 | Outpatient (CLI) | payer OTHER | END | disposition home or self-care (01) | LOC: RESCLI 14:46 | DX: Z23 Encounter for immunization (principal); L40.50 Arthropathic psoriasis, unspecified; D47.09 Other mast cell neoplasms of uncertain behavior; M79.7 Fibromyalgia; M19.90 Unspecified osteoarthritis, unspecified site; I10 Essential (primary) hypertension; G47.00 Insomnia, unspecified; B37.2 Candidiasis of skin and nail; Z79.899 Other long term (current) drug therapy; Z88.8 Allergy status to other drugs, medicaments and biological substances ==

== ENCOUNTER → 2018-08-19 | Outpatient (CLI) | payer OTHER | END | disposition home or self-care (01) | LOC: RESCLI 00:59 | DX: M19.90 Unspecified osteoarthritis, unspecified site (principal); D47.09 Other mast cell neoplasms of uncertain behavior; M79.7 Fibromyalgia; G47.00 Insomnia, unspecified; L40.50 Arthropathic psoriasis, unspecified; Z79.899 Other long term (current) drug therapy; Z88.8 Allergy status to other drugs, medicaments and biological substances ==

== ENCOUNTER → 2018-09-26 | Outpatient (CLI) | payer OTHER ==
[~2018-09-26] MED LIST changes: +GABAPENTIN800 MG PO; +HYDROCODON-ACE1 EAC1 PO; +METHOTREXATE2.5 MG PO; +TRAZODONE50 MG PO
== END | disposition home or self-care (01) ==
LOC: RESCLI 01:56
DX: M19.90 Unspecified osteoarthritis, unspecified site (principal); M79.7 Fibromyalgia; G47.00 Insomnia, unspecified; L40.50 Arthropathic psoriasis, unspecified; D47.09 Other mast cell neoplasms of uncertain behavior; R40.0 Somnolence; L40.9 Psoriasis, unspecified; R03.0 Elevated blood-pressure reading, without diagnosis of hypertension; Z79.899 Other long term (current) drug therapy; Z88.8 Allergy status to other drugs, medicaments and biological substances

== ENCOUNTER → 2018-10-02 | Outpatient (CLI) | payer OTHER ==
[2018-10-02 13:15] LABS: BASO # 0.1 10*3/uL (0.0-0.1); BASO % 0.8 % (0.0-1.0); EOS # 0.1 10*3/uL (0.0-0.4); EOS % 1.1 % (1.0-4.0); HEMATOCRIT 48.9 % (37.0-47.0); HEMOGLOBIN 15.6 g/dl (12.0-16.0); LYMPH # 3.9 10*3/uL (1.3-4.4); LYMPH % 32.3 % (27.0-41.0); MEAN CELL VOLUME 83.9 fl (81.0-99.0); MEAN CORPUSCULAR HGB 26.8 pg (27.0-31.0); MEAN CORPUSCULAR HGB CONC 31.9 g/dl (33.0-37.0); MEAN PLATELET VOLUME 9.6 fl (9.6-12.3); MONO # 0.6 10*3/uL (0.1-1.0); MONO % 4.8 % (3.0-9.0); NEUT # 7.4 10*3/uL (2.3-7.9); NEUT % 60.7 % (47.0-73.0); PLATELET COUNT AUTOMATED 258 10*3/uL (130-400); RED BLOOD COUNT 5.83 10*6/uL (4.10-5.10); RED CELL DISTRI WIDTH 14.3 % (0-14.5); WHITE BLOOD COUNT 12.2 10*3/uL (4.8-10.8)
[2018-10-02 13:41] LABS: ALBUMIN 3.6 gm/dl (3.1-4.5); ALKALINE PHOSPHATASE 99 U/L (45-117); BUN 15 mg/dl (7-24); CHLORIDE 103 mmol/L (98-107); CREATININE 0.85 mg/dL (0.55-1.02); POTASSIUM 3.9 mmol/L (3.5-5.1); SGOT/AST 12 IU/L (3-35); SGPT/ALT 16 U/L (12-78); SODIUM 139 mmol/L (136-145); TOTAL PROTEIN 7.4 gm/dL (6.4-8.2)
[2018-10-03 15:07] LABS: ANTI-DSDNA ANTIBODIES 096339 <1 IU/mL (0-9); ANTI-RNP ANTIBODIES <0.2 AI (0.0-0.9); ANTICHROMATIN ANTIBODIES <0.2 AI (0.0-0.9); ANTISCLERODERMA-70 AB <0.2 AI (0.0-0.9); SJOGREN ANTI-SS-A <0.2 AI (0.0-0.9); SJOREN AB, ANTI-SS-B <0.2 AI (0.0-0.9)
== END | disposition home or self-care (01) ==
LOC: LAB 12:47
PROVIDERS: Internal Medicine
DX: M19.90 Unspecified osteoarthritis, unspecified site (principal); R40.0 Somnolence

== ENCOUNTER → 2018-10-28 | Outpatient (CLI) | payer OTHER | END | disposition home or self-care (01) | LOC: RESCLI 02:34 | DX: E66.9 Obesity, unspecified (principal); M19.90 Unspecified osteoarthritis, unspecified site; D47.09 Other mast cell neoplasms of uncertain behavior; M79.7 Fibromyalgia; G47.00 Insomnia, unspecified; L40.50 Arthropathic psoriasis, unspecified; M46.90 Unspecified inflammatory spondylopathy, site unspecified; R00.0 Tachycardia, unspecified; Z79.899 Other long term (current) drug therapy; Z88.8 Allergy status to other drugs, medicaments and biological substances ==

== ENCOUNTER → 2018-12-02 | Outpatient (CLI) | payer OTHER ==
[2018-12-02 11:15] LABS: BASO # 0.1 10*3/uL (0.0-0.1); BASO % 0.8 % (0.0-1.0); EOS # 0.2 10*3/uL (0.0-0.4); EOS % 2.6 % (1.0-4.0); HEMATOCRIT 44.1 % (37.0-47.0); HEMOGLOBIN 13.9 g/dl (12.0-16.0); LYMPH # 2.1 10*3/uL (1.3-4.4); LYMPH % 25.8 % (27.0-41.0); MEAN CELL VOLUME 87.7 fl (81.0-99.0); MEAN CORPUSCULAR HGB 27.6 pg (27.0-31.0); MEAN CORPUSCULAR HGB CONC 31.5 g/dl (33.0-37.0); MEAN PLATELET VOLUME 9.7 fl (9.6-12.3); MONO # 0.4 10*3/uL (0.1-1.0); MONO % 5.1 % (3.0-9.0); NEUT # 5.2 10*3/uL (2.3-7.9); NEUT % 65.4 % (47.0-73.0); PLATELET COUNT AUTOMATED 256 10*3/uL (130-400); RED BLOOD COUNT 5.03 10*6/uL (4.10-5.10); RED CELL DISTRI WIDTH 15.8 % (0-14.5)
[2018-12-02 11:46] LABS: ALBUMIN 3.5 gm/dl (3.1-4.5); ALKALINE PHOSPHATASE 97 U/L (45-117); BUN 9 mg/dl (7-24); CHLORIDE 105 mmol/L (98-107); CREATININE 0.84 mg/dL (0.55-1.02); POTASSIUM 4.1 mmol/L (3.5-5.1); SGOT/AST 15 IU/L (3-35); SGPT/ALT 18 U/L (12-78); SODIUM 140 mmol/L (136-145); TOTAL PROTEIN 7.6 gm/dL (6.4-8.2)
== END | disposition home or self-care (01) ==
LOC: RESCLI 01:58
PROVIDERS: Internal Medicine
DX: Z23 Encounter for immunization (principal); L40.50 Arthropathic psoriasis, unspecified; D47.09 Other mast cell neoplasms of uncertain behavior; G47.00 Insomnia, unspecified; M79.7 Fibromyalgia; M19.90 Unspecified osteoarthritis, unspecified site; K92.1 Melena; Z79.899 Other long term (current) drug therapy; Z90.49 Acquired absence of other specified parts of digestive tract; Z88.8 Allergy status to other drugs, medicaments and biological substances

== ENCOUNTER → 2018-12-04 | Day surgery (SDC) | payer OTHER ==
[~2018-12-04] VITALS: Ht 160 cm; Wt 112.9 kg
--- NOTE | ~2018-12-04 | PROC NOTE ---
[place], [place] PROCEDURE NOTE [id number] UN[facility] #: [id number] ROOM: DOCTOR: AMMON BRENNAN MD BIRTHDATE: [birth year] DOS: 12/04/2018 PREOPERATIVE DIAGNOSIS: History of polyps. POSTOPERATIVE DIAGNOSIS: Diverticulosis. PROCEDURE: Colonoscopy. ENDOSCOPIST: Ammon Brennan MD AIRPLANE TESTER: LAINEY. ANESTHESIA: MAC. INDICATIONS: This is a 53-year-old lady who is here for a followup colonoscopy. She has got a history of polyps that were removed in the past. The procedure and its complications were explained to the patient in detail preoperatively. Complications that were discussed included but were not limited to bleeding, infection, hematoma/seroma/ abscess, bleeding, missed lesions, colon perforation, and prolonged pain. She agreed to proceed. DESCRIPTION OF PROCEDURE: After identifying the patient, the patient was brought to the endoscopy suite and placed in the left lateral position. After IV sedation was administered, a time-out procedure was called. A digital rectal exam was performed, which was within normal limits. An adult colonoscope was introduced into the anal canal and advanced sequentially into the rectum, sigmoid colon, descending colon, transverse colon, ascending colon up to the cecum. Upon reaching the cecum, the scope was withdrawn. Total withdrawal time was 7 minutes. There were no obvious polyps seen in the entirety of the colon. There was mild sigmoid diverticulosis that was identified. The scope was withdrawn and the patient was brought back to the recovery room in stable fashion. There were no complications. Based on this finding, the patient is recommended to have another colonoscopy in the next 5 years or sooner if she has new symptoms in the past. Ammon Brennan MD CM:PROCNOTE:PROCEDURE NOTE [id number] AMMON BRENNAN MD
[2018-12-04 10:23] VITALS: BP 160/100
[2018-12-04 12:28] VITALS: BP 120/93
[2018-12-04 12:43] VITALS: BP 139/93
[2018-12-04 12:58] VITALS: BP 150/99
== END | disposition home or self-care (01) ==
LOC: SDC 12-01 13:15
DX: K57.30 Diverticulosis of large intestine without perforation or abscess without bleeding (principal); M19.90 Unspecified osteoarthritis, unspecified site; E66.01 Morbid (severe) obesity due to excess calories; Z68.42 Body mass index [BMI] 45.0-49.9, adult; Z79.2 Long term (current) use of antibiotics; Z86.010 Personal history of colon polyps; Z87.01 Personal history of pneumonia (recurrent); Z98.890 Other specified postprocedural states; Z90.49 Acquired absence of other specified parts of digestive tract; Z83.3 Family history of diabetes mellitus; Z82.49 Family history of ischemic heart disease and other diseases of the circulatory system; Z80.3 Family history of malignant neoplasm of breast

== ENCOUNTER → 2019-01-06 | Outpatient (CLI) | payer OTHER | END | disposition home or self-care (01) | LOC: RESCLI 08:19 | DX: L40.50 Arthropathic psoriasis, unspecified (principal); D47.09 Other mast cell neoplasms of uncertain behavior; G47.00 Insomnia, unspecified; M79.7 Fibromyalgia; M19.90 Unspecified osteoarthritis, unspecified site; H81.11 Benign paroxysmal vertigo, right ear; T16.2XXA Foreign body in left ear, initial encounter; Z79.899 Other long term (current) drug therapy; Z88.8 Allergy status to other drugs, medicaments and biological substances ==

== ENCOUNTER → 2019-02-02 | Outpatient (CLI) | payer OTHER ==
[2019-02-02 15:14] LABS: BASO # 0.1 10*3/uL (0.0-0.1); BASO % 0.6 % (0.0-1.0); EOS # 0.3 10*3/uL (0.0-0.4); EOS % 3.1 % (1.0-4.0); HEMATOCRIT 43.7 % (37.0-47.0); HEMOGLOBIN 14.2 g/dl (12.0-16.0); LYMPH # 2.4 10*3/uL (1.3-4.4); MEAN CELL VOLUME 90.9 fl (81.0-99.0); MEAN CORPUSCULAR HGB 29.5 pg (27.0-31.0); MEAN CORPUSCULAR HGB CONC 32.5 g/dl (33.0-37.0); MEAN PLATELET VOLUME 10.2 fl (9.6-12.3); MONO # 0.5 10*3/uL (0.1-1.0); MONO % 5.8 % (3.0-9.0); NEUT # 5.3 10*3/uL (2.3-7.9); NEUT % 61.9 % (47.0-73.0); PLATELET COUNT AUTOMATED 232 10*3/uL (130-400); RED BLOOD COUNT 4.81 10*6/uL (4.10-5.10); RED CELL DISTRI WIDTH 15.1 % (0-14.5); WHITE BLOOD COUNT 8.5 10*3/uL (4.8-10.8)
[2019-02-02 15:46] LABS: ALBUMIN 3.8 gm/dl (3.1-4.5); ALKALINE PHOSPHATASE 81 U/L (45-117); BILIRUBIN, DIRECT < 0.1 mg/dL (0.0-0.2); BUN 14 mg/dl (7-24); CHLORIDE 106 mmol/L (98-107); CREATININE 0.87 mg/dL (0.55-1.02); POTASSIUM 3.8 mmol/L (3.5-5.1); SGOT/AST 15 IU/L (3-35); SGPT/ALT 17 U/L (12-78); SODIUM 141 mmol/L (136-145); TOTAL PROTEIN 7.2 gm/dL (6.4-8.2)
[2019-02-05 06:11] LABS: TB1 Ag VALUE 0.02 IU/mL (.)
== END | disposition home or self-care (01) ==
LOC: LAB 14:26
PROVIDERS: Internal Medicine
DX: L40.50 Arthropathic psoriasis, unspecified (principal); M54.5 Low back pain

== ENCOUNTER → 2019-02-10 | Outpatient (CLI) | payer OTHER | END | disposition home or self-care (01) | LOC: RESCLI 01:01 | DX: G47.00 Insomnia, unspecified (principal); R60.0 Localized edema; J30.2 Other seasonal allergic rhinitis; M19.90 Unspecified osteoarthritis, unspecified site; L40.50 Arthropathic psoriasis, unspecified; H81.11 Benign paroxysmal vertigo, right ear; E66.01 Morbid (severe) obesity due to excess calories; Z79.899 Other long term (current) drug therapy; Z88.8 Allergy status to other drugs, medicaments and biological substances ==

== ENCOUNTER → 2019-02-24 | Outpatient (CLI) | payer OTHER ==
[2019-02-24 12:30] LABS: BASO % 0.6 % (0.0-1.0); EOS # 0.2 10*3/uL (0.0-0.4); HEMATOCRIT 42.6 % (37.0-47.0); HEMOGLOBIN 13.7 g/dl (12.0-16.0); LYMPH % 30.4 % (27.0-41.0); MEAN CELL VOLUME 92.4 fl (81.0-99.0); MEAN CORPUSCULAR HGB 29.7 pg (27.0-31.0); MEAN CORPUSCULAR HGB CONC 32.2 g/dl (33.0-37.0); MEAN PLATELET VOLUME 10.3 fl (9.6-12.3); MONO # 0.4 10*3/uL (0.1-1.0); MONO % 5.4 % (3.0-9.0); NEUT # 3.9 10*3/uL (2.3-7.9); NEUT % 60.4 % (47.0-73.0); PLATELET COUNT AUTOMATED 223 10*3/uL (130-400); RED BLOOD COUNT 4.61 10*6/uL (4.10-5.10); RED CELL DISTRI WIDTH 14.9 % (0-14.5); WHITE BLOOD COUNT 6.4 10*3/uL (4.8-10.8)
[2019-02-24 13:01] LABS: ALBUMIN 3.7 gm/dl (3.1-4.5); BILIRUBIN, DIRECT < 0.1 mg/dL (0.0-0.2); BUN 9 mg/dl (7-24); CHLORIDE 106 mmol/L (98-107); POTASSIUM 4.3 mmol/L (3.5-5.1); SGOT/AST 18 IU/L (3-35); SODIUM 141 mmol/L (136-145)
[2019-02-24 13:05] LABS: ALKALINE PHOSPHATASE 72 U/L (45-117); CHOLESTEROL 252 mg/dL (<200); CREATININE 0.82 mg/dL (0.55-1.02); HDL CHOLESTEROL 46 mg/dl (40-60); LDL CHOLESTEROL 172 mg/dL (9-159); SGPT/ALT 16 U/L (12-78); TOTAL PROTEIN 7.1 gm/dL (6.4-8.2); TRIGLYCERIDES 170 mg/dl (<150); VLDL CHOLESTEROL 34 mg/dL (6-40)
== END | disposition home or self-care (01) ==
LOC: LAB 11:45
PROVIDERS: Internal Medicine
DX: M19.90 Unspecified osteoarthritis, unspecified site (principal); M79.7 Fibromyalgia; Z79.899 Other long term (current) drug therapy

== ENCOUNTER → 2019-03-17 | Outpatient (CLI) | payer OTHER ==
[2019-03-17 11:47] LABS: BASO # 0.1 10*3/uL (0.0-0.1); BASO % 0.9 % (0.0-1.0); EOS # 0.2 10*3/uL (0.0-0.4); EOS % 2.9 % (1.0-4.0); HEMATOCRIT 43.5 % (37.0-47.0); HEMOGLOBIN 13.9 g/dl (12.0-16.0); LYMPH # 2.3 10*3/uL (1.3-4.4); LYMPH % 33.3 % (27.0-41.0); MEAN CORPUSCULAR HGB 30.3 pg (27.0-31.0); MEAN PLATELET VOLUME 10.3 fl (9.6-12.3); MONO # 0.3 10*3/uL (0.1-1.0); MONO % 4.5 % (3.0-9.0); NEUT % 58.1 % (47.0-73.0); PLATELET COUNT AUTOMATED 203 10*3/uL (130-400); RED BLOOD COUNT 4.58 10*6/uL (4.10-5.10); RED CELL DISTRI WIDTH 14.7 % (0-14.5); WHITE BLOOD COUNT 6.8 10*3/uL (4.8-10.8)
[2019-03-17 12:12] LABS: ALBUMIN 3.7 gm/dl (3.1-4.5); ALKALINE PHOSPHATASE 75 U/L (45-117); BUN 14 mg/dl (7-24); CHLORIDE 107 mmol/L (98-107); CREATININE 0.85 mg/dL (0.55-1.02); POTASSIUM 4.4 mmol/L (3.5-5.1); SGOT/AST 20 IU/L (3-35); SGPT/ALT 17 U/L (12-78); SODIUM 141 mmol/L (136-145); TOTAL PROTEIN 7.1 gm/dL (6.4-8.2)
[2019-03-17 13:18] LABS: VITAMIN D, 25-HYDROXY 28.9 ng/mL (30-100)
== END | disposition home or self-care (01) ==
LOC: RESCLI 00:23
PROVIDERS: Internal Medicine
DX: M19.90 Unspecified osteoarthritis, unspecified site (principal); H65.01 Acute serous otitis media, right ear; M79.7 Fibromyalgia; R60.0 Localized edema; J30.2 Other seasonal allergic rhinitis; G47.00 Insomnia, unspecified; L40.50 Arthropathic psoriasis, unspecified; H81.11 Benign paroxysmal vertigo, right ear; B37.0 Candidal stomatitis; R59.0 Localized enlarged lymph nodes; Z79.899 Other long term (current) drug therapy; Z88.8 Allergy status to other drugs, medicaments and biological substances

== ENCOUNTER → 2019-03-30 | Outpatient (CLI) | payer OTHER ==
[2019-03-30 09:52] LABS: BASO # 0.1 10*3/uL (0.0-0.1); BASO % 0.7 % (0.0-1.0); EOS # 0.2 10*3/uL (0.0-0.4); EOS % 3.2 % (1.0-4.0); HEMATOCRIT 44.3 % (37.0-47.0); HEMOGLOBIN 13.9 g/dl (12.0-16.0); LYMPH # 2.4 10*3/uL (1.3-4.4); MEAN CELL VOLUME 94.5 fl (81.0-99.0); MEAN CORPUSCULAR HGB 29.6 pg (27.0-31.0); MEAN CORPUSCULAR HGB CONC 31.4 g/dl (33.0-37.0); MEAN PLATELET VOLUME 10.2 fl (9.6-12.3); MONO # 0.5 10*3/uL (0.1-1.0); NEUT # 4.1 10*3/uL (2.3-7.9); PLATELET COUNT AUTOMATED 179 10*3/uL (130-400); RED BLOOD COUNT 4.69 10*6/uL (4.10-5.10); RED CELL DISTRI WIDTH 14.7 % (0-14.5); WHITE BLOOD COUNT 7.4 10*3/uL (4.8-10.8)
[2019-03-30 10:20] LABS: ALBUMIN 3.7 gm/dl (3.1-4.5); BUN 13 mg/dl (7-24); CHLORIDE 106 mmol/L (98-107); CREATININE 0.88 mg/dL (0.55-1.02); POTASSIUM 4.8 mmol/L (3.5-5.1); SGOT/AST 31 IU/L (3-35); SODIUM 140 mmol/L (136-145); TOTAL PROTEIN 7.4 gm/dL (6.4-8.2)
[2019-03-30 10:21] LABS: ALKALINE PHOSPHATASE 81 U/L (45-117); SGPT/ALT 23 U/L (12-78)
== END | disposition home or self-care (01) ==
LOC: LAB 09:14
PROVIDERS: Internal Medicine
DX: L40.50 Arthropathic psoriasis, unspecified (principal)

== ENCOUNTER → 2019-06-02 | Outpatient (CLI) | payer OTHER ==
[2019-06-02 11:25] LABS: BASO # 0.1 10*3/uL (0.0-0.1); BASO % 0.9 % (0.0-1.0); EOS # 0.3 10*3/uL (0.0-0.4); EOS % 3.5 % (1.0-4.0); HEMATOCRIT 44.2 % (37.0-47.0); HEMOGLOBIN 14.3 g/dl (12.0-16.0); LYMPH # 2.1 10*3/uL (1.3-4.4); MEAN CELL VOLUME 95.9 fl (81.0-99.0); MEAN CORPUSCULAR HGB CONC 32.4 g/dl (33.0-37.0); MONO # 0.5 10*3/uL (0.1-1.0); MONO % 5.9 % (3.0-9.0); NEUT # 4.8 10*3/uL (2.3-7.9); NEUT % 62.4 % (47.0-73.0); PLATELET COUNT AUTOMATED 227 10*3/uL (130-400); RED BLOOD COUNT 4.61 10*6/uL (4.10-5.10); RED CELL DISTRI WIDTH 14.3 % (0-14.5); WHITE BLOOD COUNT 7.8 10*3/uL (4.8-10.8)
[2019-06-02 11:51] LABS: ALBUMIN 3.7 gm/dl (3.1-4.5); ALKALINE PHOSPHATASE 87 U/L (45-117); BUN 10 mg/dl (7-24); CHLORIDE 103 mmol/L (98-107); CHOLESTEROL 263 mg/dL (<200); CREATININE 0.78 mg/dL (0.55-1.02); HDL CHOLESTEROL 54 mg/dl (40-60); LDL CHOLESTEROL 155 mg/dL (9-159); POTASSIUM 4.4 mmol/L (3.5-5.1); SGOT/AST 39 IU/L (3-35); SGPT/ALT 35 U/L (12-78); SODIUM 138 mmol/L (136-145); TOTAL PROTEIN 7.3 gm/dL (6.4-8.2); TRIGLYCERIDES 269 mg/dl (<150); VLDL CHOLESTEROL 54 mg/dL (6-40)
== END | disposition home or self-care (01) ==
LOC: RESCLI 00:06
PROVIDERS: Hospitalist
DX: Z09 Encounter for follow-up examination after completed treatment for conditions other than malignant neoplasm (principal); L40.9 Psoriasis, unspecified; L40.50 Arthropathic psoriasis, unspecified; J30.2 Other seasonal allergic rhinitis; H81.10 Benign paroxysmal vertigo, unspecified ear; I10 Essential (primary) hypertension; M79.7 Fibromyalgia; E78.5 Hyperlipidemia, unspecified; E66.01 Morbid (severe) obesity due to excess calories; M19.90 Unspecified osteoarthritis, unspecified site; R60.0 Localized edema; Z79.899 Other long term (current) drug therapy

== ENCOUNTER → 2019-07-07 | Outpatient (CLI) | payer OTHER ==
[~2019-07-07] MED LIST changes: +ALBUTEROL S5 MG/1 ML NEB; +ATARAX,VISTARIL50 MG PO; +AVPAK AZITHROM250 MG PO; +CELECOXIB200 M1 PO; +CYMBALTA30 MG PO; +Fioricet 325 MG1 TAB PO; +HYDROCODONE-AC1 EAC1 PO; +LISINOPRIL10 M1 PO; -METHOTREXATE2.5 MG PO; +METHOTREXATE2.5 MG SC; +MUCINEX1200 M1 PO; +NATURE'S BLEND F1 MG PO; +NEURONTIN600 MG PO; +OTEZLA1 EAC1 PO; +PREDNISONE10 MG PO; +VITAMIN D-32000 UNI1 PO
[2019-07-07 11:01] LABS: BASO # 0.1 10*3/uL (0.0-0.1); BASO % 0.6 % (0.0-1.0); EOS # 0.2 10*3/uL (0.0-0.4); EOS % 2.4 % (1.0-4.0); HEMATOCRIT 42.7 % (37.0-47.0); HEMOGLOBIN 13.7 g/dl (12.0-16.0); LYMPH % 23.5 % (27.0-41.0); MEAN CELL VOLUME 95.7 fl (81.0-99.0); MEAN CORPUSCULAR HGB 30.7 pg (27.0-31.0); MEAN CORPUSCULAR HGB CONC 32.1 g/dl (33.0-37.0); MEAN PLATELET VOLUME 9.8 fl (9.6-12.3); MONO # 0.5 10*3/uL (0.1-1.0); MONO % 5.8 % (3.0-9.0); NEUT # 5.7 10*3/uL (2.3-7.9); NEUT % 67.5 % (47.0-73.0); PLATELET COUNT AUTOMATED 213 10*3/uL (130-400); RED BLOOD COUNT 4.46 10*6/uL (4.10-5.10); RED CELL DISTRI WIDTH 13.8 % (0-14.5); WHITE BLOOD COUNT 8.5 10*3/uL (4.8-10.8)
[2019-07-07 11:33] LABS: ALBUMIN 3.6 gm/dl (3.1-4.5); ALKALINE PHOSPHATASE 87 U/L (45-117); BUN 9 mg/dl (7-24); CHLORIDE 103 mmol/L (98-107); CHOLESTEROL 207 mg/dL (<200); CREATININE 0.78 mg/dL (0.55-1.02); HDL CHOLESTEROL 42 mg/dl (40-60); LDL CHOLESTEROL 101 mg/dL (9-159); POTASSIUM 4.2 mmol/L (3.5-5.1); SGOT/AST 19 IU/L (3-35); SGPT/ALT 20 U/L (12-78); SODIUM 139 mmol/L (136-145); TOTAL PROTEIN 7.2 gm/dL (6.4-8.2); TRIGLYCERIDES 319 mg/dl (<150); VLDL CHOLESTEROL 64 mg/dL (6-40)
== END | disposition home or self-care (01) ==
LOC: RESCLI 00:45
PROVIDERS: Hospitalist
DX: Z23 Encounter for immunization (principal); L40.50 Arthropathic psoriasis, unspecified; R11.0 Nausea; E66.01 Morbid (severe) obesity due to excess calories; H81.10 Benign paroxysmal vertigo, unspecified ear; M19.90 Unspecified osteoarthritis, unspecified site; Z78.9 Other specified health status; Z68.41 Body mass index [BMI] 40.0-44.9, adult; Z79.899 Other long term (current) drug therapy

== ENCOUNTER 2019-08-11 11:48 | Inpatient (IN) | payer OTHER ==
[2019-08-11] VITALS (8 sets, daily range): BP systolic 130–185; BP diastolic 90–111
[~2019-08-11] VITALS: Ht 160 cm; Wt 113.5 kg
[~2019-08-11 11:48] MED LIST changes: -ALBUTEROL S5 MG/1 ML NEB; -ATARAX,VISTARIL50 MG PO; -AVPAK AZITHROM250 MG PO; -CELECOXIB200 M1 PO; -CYMBALTA30 MG PO; -Fioricet 325 MG1 TAB PO; -HYDROCODONE-AC1 EAC1 PO; -LISINOPRIL10 M1 PO; -MUCINEX1200 M1 PO; -NATURE'S BLEND F1 MG PO; -NEURONTIN600 MG PO; -OTEZLA1 EAC1 PO; -PREDNISONE10 MG PO; -VITAMIN D-32000 UNI1 PO
[2019-08-11 12:31] LABS: BASO # 0.1 10*3/uL (0.0-0.1); BASO % 1.1 % (0.0-1.0); EOS # 0.2 10*3/uL (0.0-0.4); EOS % 3.4 % (1.0-4.0); HEMATOCRIT 41.3 % (37.0-47.0); HEMOGLOBIN 13.6 g/dl (12.0-16.0); LYMPH # 1.7 10*3/uL (1.3-4.4); LYMPH % 25.8 % (27.0-41.0); MEAN CELL VOLUME 95.2 fl (81.0-99.0); MEAN CORPUSCULAR HGB 31.3 pg (27.0-31.0); MEAN CORPUSCULAR HGB CONC 32.9 g/dl (33.0-37.0); MEAN PLATELET VOLUME 10.6 fl (9.6-12.3); MONO # 0.4 10*3/uL (0.1-1.0); MONO % 6.1 % (3.0-9.0); NEUT # 4.1 10*3/uL (2.3-7.9); NEUT % 63.3 % (47.0-73.0); PLATELET COUNT AUTOMATED 197 10*3/uL (130-400); RED BLOOD COUNT 4.34 10*6/uL (4.10-5.10); RED CELL DISTRI WIDTH 13.2 % (0-14.5); WHITE BLOOD COUNT 6.5 10*3/uL (4.8-10.8)
[2019-08-11 12:47] LABS: ALBUMIN 3.3 gm/dl (3.1-4.5); ALKALINE PHOSPHATASE 87 U/L (45-117); BUN 8 mg/dl (7-24); CHLORIDE 107 mmol/L (98-107); CREATININE 0.77 mg/dL (0.55-1.02); POTASSIUM 3.9 mmol/L (3.5-5.1); SGOT/AST 21 IU/L (3-35); SGPT/ALT 21 U/L (12-78); SODIUM 138 mmol/L (136-145); TOTAL PROTEIN 6.7 gm/dL (6.4-8.2)
--- NOTE | 2019-08-11 16:00 | NUR ---
Time: 1599 A 54 year old FEMALE admitted to 5E under services of LUZMA PAGAN DO, Pt. arrived via stretcher from ER. Chief complaint: COUGH CONGESTION. FREDERIC WATT
[2019-08-11] MEDS ORDERED: ZOFRAN4 MG PO (16:26)
[2019-08-11] MEDS ORDERED: OTEZLA1 EAC1 PO (16:28)
--- NOTE | 2019-08-11 16:48 | NUR ---
PATIENT WILL ONLY TAKE CATAPRESS NOW AND AFTER 1 HR RECHECK SHE WILL TAKE ZESTRIL IF NEEDED.
--- NOTE | 2019-08-11 17:00 | NUR ---
DR. BECKER NOTIFIED OF CONSULT.
--- NOTE | 2019-08-11 18:00 | NUR ---
MANUAL BP 152/102. LISINOPRIL GIVEN.
--- NOTE | 2019-08-11 20:06 | NUR ---
24 HOUR CHART CHECK COMPLETE.
[2019-08-12] VITALS: BP 127/76
--- NOTE | 2019-08-12 02:53 | NUR ---
TYLENOL ADMINISTERED FOR PT C/O HEADACHE REATED A 10 ON THE PAIN SCALE. BP 130/88 AT THIS TIME. WILL CONTINUE TO MONITOR.
[2019-08-12 06:41] LABS: ALBUMIN 3.2 gm/dl (3.1-4.5); BUN 11 mg/dl (7-24); CHLORIDE 105 mmol/L (98-107); CHOLESTEROL 271 mg/dL (<200); CREATININE 0.76 mg/dL (0.55-1.02); PHOSPHOROUS 1.9 mg/dL (2.5-4.9); POTASSIUM 4.3 mmol/L (3.5-5.1); SGOT/AST 23 IU/L (3-35); SGPT/ALT 25 U/L (12-78); SODIUM 135 mmol/L (136-145); TRIGLYCERIDES 72 mg/dl (<150); VLDL CHOLESTEROL 14 mg/dL (6-40)
[2019-08-12 06:43] LABS: ALKALINE PHOSPHATASE 86 U/L (45-117); HEMATOCRIT 41.4 % (37.0-47.0); HEMOGLOBIN 13.5 g/dl (12.0-16.0); MEAN CELL VOLUME 96.3 fl (81.0-99.0); MEAN CORPUSCULAR HGB 31.4 pg (27.0-31.0); MEAN CORPUSCULAR HGB CONC 32.6 g/dl (33.0-37.0); MEAN PLATELET VOLUME 11.2 fl (9.6-12.3); PLATELET COUNT AUTOMATED 192 10*3/uL (130-400); RED CELL DISTRI WIDTH 13.2 % (0-14.5); TOTAL PROTEIN 6.9 gm/dL (6.4-8.2); WHITE BLOOD COUNT 7.5 10*3/uL (4.8-10.8)
[2019-08-12 06:46] LABS: FREE T4 0.94 ng/dl (0.76-1.46); HDL CHOLESTEROL 57 mg/dl (40-60); LDL CHOLESTEROL 200 mg/dL (9-159); THYROID STIM HORMONE (HS) 0.272 uIU/ml (0.358-4.75)
[2019-08-12 07:15] LABS: VITAMIN D, 25-HYDROXY 35.6 ng/mL (30-100)
[2019-08-12 07:48] LABS: PLATELET SUFFICIENCY NORMAL (NORMAL); TOTAL CELLS COUNTED 100 #CELLS
[2019-08-12 08:00] VITALS: BP 168/93
--- NOTE | 2019-08-12 09:00 | NUR ---
Pit Operator in to talk to patient. Patient states lives at home with family. There are few steps in the home. Physician: [facility] Patient's level of ADLs: INDEPENDENT Patient has working utilities: all working DME: none Follow-up physician's appointment after d/c: will be made by hospitalist nurse director upon discharge Does patient want to access PORTAL?: no Discharge plan discusssed with patient, she states she lives at home with her family, is independent in adls and ambulation, she states she is having a procodure on Saturday of this week and possibly return home after that, she denies any home needs at this time. SAMANTHA WILSON
--- NOTE | 2019-08-12 10:51 | NUR ---
PT MEDICATED WITH PRN ZOFRAN AFTER C/O NAUSEA FROM SMELL COMING FROM HER BATHROOM. PT MOVED TO ANOTHER ROOM. MAINTENANCE NOTIFIED.
[2019-08-12 12:00] VITALS: BP 139/89
--- NOTE | 2019-08-12 14:04 | NUR ---
SPEECH PATHOLOGY Orders for MBS received in error. Cancellation request received as well. Clinician spoke with patient's nurse to confirm this information. BERRY RAMIREZ MSCCC-LEGAL ADVISER
[2019-08-12 16:00] VITALS: BP 138/88
[2019-08-12] MEDS ORDERED: HYDROCODONE-AC1 EAC1 PO (16:29)
--- NOTE | 2019-08-12 16:30 | NUR ---
SPOKE TO DR GAN REGARDING PTS PRESCRIBED MEDICATION WHICH SHE TAKES AT HOME. PTS MED REC UPDATED. DR GAN STATED HE WILLCONRUTHUE
--- NOTE | 2019-08-12 18:16 | NUR ---
PT C/O HEADACHE RATED 9/10. SHE STATES SHE HAS CHRONIC HEADACHES. PT TAKES PO IMITREX DAILY NEEDED. PT REQUESTED PO FIORICET. ONE TIME ORDER RECEIVED FROM DR GAN.
[2019-08-12 20:00] VITALS: BP 145/98
[2019-08-13] VITALS: BP 116/74
[2019-08-13 08:00] VITALS: BP 151/94
--- NOTE | 2019-08-13 09:00 | NUR ---
case management visits with patient, she will return home when medically stable, she will return home when medically stable
[2019-08-13] MEDS ORDERED: NATURE'S BLEND F1 MG PO (11:11)
[2019-08-13] MEDS ORDERED: VITAMIN D-32000 UNI1 PO (11:11)
[2019-08-13 12:00] VITALS: BP 139/84
--- NOTE | 2019-08-13 13:30 | NUR ---
PT MEDICATED WITH ONE TIME DOSE OF DIALUDID AND PRN VISTARIL FOR C/O A SEVERE HEADACHE AND ANXIETY. WILL MONITOR.
[2019-08-13 16:00] VITALS: BP 135/83
[2019-08-13 20:00] VITALS: BP 149/90
[2019-08-14] VITALS: BP 108/63
[2019-08-14 08:00] VITALS: BP 132/80
--- NOTE | 2019-08-14 09:00 | NUR ---
case management visits with patient, she will return home when medically stable and denies any home needs
[2019-08-14 12:00] VITALS: BP 141/95
--- NOTE | 2019-08-14 12:09 | NUR ---
PT INSTRUCTED ON USE OF FLUTTER. PT DEMONSTRATED PROPER TECHNIQUE. PT INSTRUCTED TO USE Q 1-2 HR W/A X 10.
--- NOTE | 2019-08-14 13:00 | NUR ---
MEDICATED WITH VISTARIL FOR PT'S COMPLAINTS OF ANXIETY. WILL MONITOR FOR EFFECTIVENESS.
--- NOTE | 2019-08-14 15:10 | NUR ---
PT COMPLAINING OF DYSPNEA AND LEFT SIDED HEADACHE WITH THROBBING AND TINGLING. VITAL SIGNS TAKEN: 145/93, HR 78, RESPIRATIONS 20, 98% ON ROOM AIR. PT DOES NOTE SHE FEELS A MIGRAINE COMING ON AND IS STILL HAVING ANXIETY. LIGHTS DIMMED AND CURTAINS DRAWN.
--- NOTE | 2019-08-14 15:30 | NUR ---
IV SITE IN LEFT ARM INFILTRATED, NEW IV ESTABLISHED 22G IN RIGHT ARM. PT TOLERATED WELL. GIVEN IMITREX AND ZOFRAN AT THIS TIME FOR COMPLAINTS OF MIGRAINE AND NAUSEA. WILL MONITOR FOR EFFECTIVENESS.
[2019-08-14 16:00] VITALS: BP 153/91
--- NOTE | 2019-08-14 17:07 | NUR ---
PT RESTING MORE COMFORTABLY, STATES EARLIER IMITREX AND ZOFRAN WAS EFFECTIVE.
[2019-08-14 20:00] VITALS: BP 130/90; BP 168/91
--- NOTE | 2019-08-14 20:48 | NUR ---
24 HOUR CHART CHECK COMPLETE.
--- NOTE | 2019-08-14 22:00 | NUR ---
PT C/O GENERALIZED PAIN IN HER BACK AND HIPS. NORCO ADMINISTERED SCHEDULED WITH PTS NIGHT TIME MEDICATIONS.
[2019-08-15] VITALS: BP 151/100
--- NOTE | 2019-08-15 00:13 | NUR ---
PATIENT MEDICATED WITH VISTARIL 25 MG PO PER PRN ORDER FOR C/O ANXIETY. SEE EMAR. REINFORCED USE OF CALL LIGHT.
[2019-08-15 00:30] VITALS: BP 144/92
--- NOTE | 2019-08-15 01:15 | NUR ---
PT SLEEPING. ANXIETY MED SEEMS TO BE EFFECTIVE. CALL LIGHT WITHIN REACH.
[2019-08-15 06:04] LABS: BUN 16 mg/dl (7-24); CHLORIDE 107 mmol/L (98-107); CREATININE 0.86 mg/dL (0.55-1.02); POTASSIUM 4.3 mmol/L (3.5-5.1); SODIUM 140 mmol/L (136-145)
[2019-08-15 06:33] LABS: BASO % 0.2 % (0.0-1.0); HEMATOCRIT 40.6 % (37.0-47.0); HEMOGLOBIN 12.9 g/dl (12.0-16.0); LYMPH # 1.5 10*3/uL (1.3-4.4); LYMPH % 13.7 % (27.0-41.0); MEAN CELL VOLUME 97.6 fl (81.0-99.0); MEAN CORPUSCULAR HGB CONC 31.8 g/dl (33.0-37.0); MEAN PLATELET VOLUME 11.3 fl (9.6-12.3); MONO # 0.5 10*3/uL (0.1-1.0); NEUT # 9.1 10*3/uL (2.3-7.9); NEUT % 80.7 % (47.0-73.0); NUCLEATED RED BLOOD CELL 0.2 % (0.0-0.0); PLATELET COUNT AUTOMATED 185 10*3/uL (130-400); RED BLOOD COUNT 4.16 10*6/uL (4.10-5.10); RED CELL DISTRI WIDTH 13.3 % (0-14.5); WHITE BLOOD COUNT 11.3 10*3/uL (4.8-10.8)
[2019-08-15 08:00] VITALS: BP 154/96
--- NOTE | 2019-08-15 09:10 | NUR ---
MEDICATED WITH IMITREX AND ZOFRAN FOR COMPLAINTS OF HEADACHE AND NAUSEA. WILL MONITOR FOR EFFECTIVENESS.
--- NOTE | 2019-08-15 10:32 | NUR ---
PT CONITUNES TO COMPLAIN OF MIGRAINE HEADACHE, STATES SHE FEELS IF HER HEAD IS BEING SQUEEZED IN A VICE. STATES EARLIER IMITREX AND NORCO WAS NOT EFFECTIVE. SPOKE WITH DR LEGGETT, STATES THEY WOULD BE UP TO SEE PT.
--- NOTE | 2019-08-15 11:42 | NUR ---
ONE TIME DOSE FIORICET GIVEN FOR COMPLAINTS OF HEADACHE.
--- NOTE | 2019-08-15 11:45 | NUR ---
DR BECK IN TO SEE PT AT THIS TIME.
[2019-08-15] MEDS ORDERED: MUCINEX1200 M1 PO (12:11)
[2019-08-15] MEDS ORDERED: AVPAK AZITHROM250 MG PO (12:11)
[2019-08-15] MEDS ORDERED: Fioricet 325 MG1 TAB PO (12:11)
[2019-08-15] MEDS ORDERED: PREDNISONE10 MG PO (12:11)
[2019-08-15] MEDS ORDERED: ATARAX,VISTARIL50 MG PO (12:39)
[2019-08-15] MEDS ORDERED: ALBUTEROL S5 MG/1 ML NEB (12:39)
[2019-08-15] MEDS ORDERED: GABAPENTIN800 MG PO (12:39)
[2019-08-15] MEDS ORDERED: CELECOXIB200 M1 PO (12:39)
[2019-08-15] MEDS ORDERED: LISINOPRIL10 M1 PO (12:39)
--- NOTE | 2019-08-15 13:15 | NUR ---
Discharge instructions reviewed with patient/family. Patient receptive and verbalizes understanding. Follow-up care arranged. Written instructions given to patient/family. IV site removed. JORDAN GRIFFIN
[2019-08-31] MEDS ORDERED: NEURONTIN600 MG PO (11:05)
[2019-08-31] MEDS ORDERED: CYMBALTA30 MG PO (11:06)
== END 2019-08-15 13:15 | disposition home or self-care (01) | DRG 139 ==
LOC: ED 11:48 → 5E 14:10 → EDHOLD 14:10 → 5E 15:42
PROVIDERS: Internal Medicine; Physician Assistant; ADMIT Internal Medicine
DX: J18.9 Pneumonia, unspecified organism (principal); J44.1 Chronic obstructive pulmonary disease with (acute) exacerbation; E44.0 Moderate protein-calorie malnutrition; E66.01 Morbid (severe) obesity due to excess calories; E55.9 Vitamin D deficiency, unspecified; L40.50 Arthropathic psoriasis, unspecified; M79.7 Fibromyalgia; E78.5 Hyperlipidemia, unspecified; I10 Essential (primary) hypertension; J44.0 Chronic obstructive pulmonary disease with (acute) lower respiratory infection; J45.901 Unspecified asthma with (acute) exacerbation; L40.9 Psoriasis, unspecified; G62.9 Polyneuropathy, unspecified; R73.9 Hyperglycemia, unspecified; E83.39 Other disorders of phosphorus metabolism; Z68.42 Body mass index [BMI] 45.0-49.9, adult; Z87.01 Personal history of pneumonia (recurrent); Z79.899 Other long term (current) drug therapy; Z90.49 Acquired absence of other specified parts of digestive tract; Z82.49 Family history of ischemic heart disease and other diseases of the circulatory system; Z82.3 Family history of stroke; Z83.3 Family history of diabetes mellitus; Z80.8 Family history of malignant neoplasm of other organs or systems; Z83.79 Family history of other diseases of the digestive system; Z87.442 Personal history of urinary calculi

== ENCOUNTER → 2019-08-11 | Outpatient (CLI) | payer OTHER | END | disposition home or self-care (01) | LOC: RESCLI 02:52 | DX: J06.9 Acute upper respiratory infection, unspecified (principal); L40.9 Psoriasis, unspecified; Z78.9 Other specified health status; L40.50 Arthropathic psoriasis, unspecified; E66.01 Morbid (severe) obesity due to excess calories; H81.10 Benign paroxysmal vertigo, unspecified ear; M19.90 Unspecified osteoarthritis, unspecified site; R52 Pain, unspecified; M79.7 Fibromyalgia; E78.5 Hyperlipidemia, unspecified; R11.0 Nausea; Z68.41 Body mass index [BMI] 40.0-44.9, adult; Z79.899 Other long term (current) drug therapy; Z88.8 Allergy status to other drugs, medicaments and biological substances ==

== ENCOUNTER → 2019-08-26 | Outpatient (CLI) | payer OTHER ==
[~2019-08-26] MED LIST changes: +ALBUTEROL S5 MG/1 ML NEB; +ATARAX,VISTARIL50 MG PO; +AVPAK AZITHROM250 MG PO; +CELECOXIB200 M1 PO; +CYMBALTA30 MG PO; +Fioricet 325 MG1 TAB PO; +HYDROCODONE-AC1 EAC1 PO; +LISINOPRIL10 M1 PO; +MUCINEX1200 M1 PO; +NATURE'S BLEND F1 MG PO; +NEURONTIN600 MG PO; +OTEZLA1 EAC1 PO; +PREDNISONE10 MG PO; +VITAMIN D-32000 UNI1 PO
== END | disposition home or self-care (01) ==
LOC: RESCLI 01:44
DX: M79.7 Fibromyalgia (principal); R53.83 Other fatigue; R29.898 Other symptoms and signs involving the musculoskeletal system; G56.03 Carpal tunnel syndrome, bilateral upper limbs; L40.50 Arthropathic psoriasis, unspecified; H81.10 Benign paroxysmal vertigo, unspecified ear; R11.0 Nausea; B37.0 Candidal stomatitis; F41.9 Anxiety disorder, unspecified; F32.9 Major depressive disorder, single episode, unspecified; R51 Headache; E55.9 Vitamin D deficiency, unspecified; I10 Essential (primary) hypertension; Z79.899 Other long term (current) drug therapy

== ENCOUNTER → 2019-09-02 | Outpatient (CLI) | payer OTHER | LOC: RESCLI 13:31 | DX: L03.012 Cellulitis of left finger (principal); F41.9 Anxiety disorder, unspecified; I10 Essential (primary) hypertension; F32.9 Major depressive disorder, single episode, unspecified; E55.9 Vitamin D deficiency, unspecified; R53.83 Other fatigue; R51 Headache; Z79.899 Other long term (current) drug therapy ==

== ENCOUNTER → 2019-09-17 | Outpatient (CLI) | payer OTHER | END | disposition home or self-care (01) | LOC: RESCLI 00:44 | DX: E78.5 Hyperlipidemia, unspecified (principal); L40.9 Psoriasis, unspecified; L40.50 Arthropathic psoriasis, unspecified; I10 Essential (primary) hypertension; M79.7 Fibromyalgia; E66.01 Morbid (severe) obesity due to excess calories; F32.9 Major depressive disorder, single episode, unspecified; H81.10 Benign paroxysmal vertigo, unspecified ear; M19.90 Unspecified osteoarthritis, unspecified site; G43.919 Migraine, unspecified, intractable, without status migrainosus; R11.0 Nausea; R52 Pain, unspecified; Z79.899 Other long term (current) drug therapy; Z68.42 Body mass index [BMI] 45.0-49.9, adult; Z90.49 Acquired absence of other specified parts of digestive tract; Z88.8 Allergy status to other drugs, medicaments and biological substances ==

== ENCOUNTER → 2019-11-24 | Outpatient (CLI) | payer OTHER ==
[2019-11-24 11:53] LABS: BASO # 0.1 10*3/uL (0.0-0.1); BASO % 0.8 % (0.0-1.0); EOS # 0.2 10*3/uL (0.0-0.4); EOS % 2.5 % (1.0-4.0); HEMATOCRIT 44.3 % (37.0-47.0); HEMOGLOBIN 14.1 g/dl (12.0-16.0); LYMPH # 1.6 10*3/uL (1.3-4.4); LYMPH % 25.2 % (27.0-41.0); MEAN CELL VOLUME 94.1 fl (81.0-99.0); MEAN CORPUSCULAR HGB 29.9 pg (27.0-31.0); MEAN CORPUSCULAR HGB CONC 31.8 g/dl (33.0-37.0); MEAN PLATELET VOLUME 10.2 fl (9.6-12.3); MONO # 0.5 10*3/uL (0.1-1.0); MONO % 7.7 % (3.0-9.0); NEUT # 4.1 10*3/uL (2.3-7.9); NEUT % 63.6 % (47.0-73.0); PLATELET COUNT AUTOMATED 189 10*3/uL (130-400); RED BLOOD COUNT 4.71 10*6/uL (4.10-5.10); RED CELL DISTRI WIDTH 13.5 % (0-14.5); WHITE BLOOD COUNT 6.5 10*3/uL (4.8-10.8)
[2019-11-24 12:22] LABS: ALBUMIN 3.5 gm/dl (3.1-4.5); ALKALINE PHOSPHATASE 82 U/L (45-117); BUN 12 mg/dl (7-24); CHLORIDE 107 mmol/L (98-107); CREATININE 0.91 mg/dL (0.55-1.02); SGOT/AST 28 IU/L (3-35); SGPT/ALT 26 U/L (12-78); SODIUM 141 mmol/L (136-145); TOTAL PROTEIN 6.9 gm/dL (6.4-8.2)
== END | disposition home or self-care (01) ==
LOC: RESCLI 02:52
PROVIDERS: Hospitalist
DX: I10 Essential (primary) hypertension (principal); E78.5 Hyperlipidemia, unspecified; L40.9 Psoriasis, unspecified; L40.50 Arthropathic psoriasis, unspecified; M79.7 Fibromyalgia; R52 Pain, unspecified; E66.01 Morbid (severe) obesity due to excess calories; H81.10 Benign paroxysmal vertigo, unspecified ear; G43.919 Migraine, unspecified, intractable, without status migrainosus; R11.0 Nausea; M19.90 Unspecified osteoarthritis, unspecified site; F32.9 Major depressive disorder, single episode, unspecified; Z68.42 Body mass index [BMI] 45.0-49.9, adult; Z88.8 Allergy status to other drugs, medicaments and biological substances; Z79.899 Other long term (current) drug therapy

== ENCOUNTER 2019-12-22 12:37 | Inpatient (IN) | payer OTHER ==
[~2019-12-22] VITALS: Ht 160 cm; Wt 110.0 kg
[2019-12-22 12:38] VITALS: BP 164/94
[2019-12-22 13:22] LABS: BASO # 0.1 10*3/uL (0.0-0.1); BASO % 1.1 % (0.0-1.0); EOS # 0.1 10*3/uL (0.0-0.4); EOS % 1.7 % (1.0-4.0); HEMATOCRIT 41.4 % (37.0-47.0); HEMOGLOBIN 13.5 g/dl (12.0-16.0); LYMPH % 29.7 % (27.0-41.0); MEAN CELL VOLUME 93.5 fl (81.0-99.0); MEAN CORPUSCULAR HGB 30.5 pg (27.0-31.0); MEAN CORPUSCULAR HGB CONC 32.6 g/dl (33.0-37.0); MONO # 0.5 10*3/uL (0.1-1.0); MONO % 7.1 % (3.0-9.0); NEUT % 60.1 % (47.0-73.0); PLATELET COUNT AUTOMATED 203 10*3/uL (130-400); RED BLOOD COUNT 4.43 10*6/uL (4.10-5.10); RED CELL DISTRI WIDTH 13.5 % (0-14.5); WHITE BLOOD COUNT 6.7 10*3/uL (4.8-10.8)
[2019-12-22 13:31] LABS: ACT PARTIAL THROMBO TIME 25.3 SECONDS (20.0-32.1)
[2019-12-22 13:36] LABS: ALBUMIN 3.4 gm/dl (3.1-4.5); ALKALINE PHOSPHATASE 81 U/L (45-117); BUN 10 mg/dl (7-24); CHLORIDE 107 mmol/L (98-107); CREATININE 0.69 mg/dL (0.55-1.02); LIPASE 96 U/L (73-393); SGOT/AST 20 IU/L (3-35); SGPT/ALT 20 U/L (12-78); SODIUM 138 mmol/L (136-145); TOTAL PROTEIN 6.9 gm/dL (6.4-8.2)
[2019-12-22 13:37] LABS: TROPONIN I < 0.015 ng/ml (<0.045)
[2019-12-22 13:59] VITALS: BP 98/74
[2019-12-22 15:48] VITALS: BP 162/96
[2019-12-22 16:51] VITALS: BP 161/78
[2019-12-22] MEDS ORDERED: OTEZLA30 MG PO (18:43)
[2019-12-22] MEDS ORDERED: MULTIVITAMINS1 EAC5 PO (18:52)
[2019-12-22] MEDS ORDERED: ONDANSETRON HYDR4 M1 PO (18:53)
[2019-12-22 18:54] VITALS: BP 157/97
[2019-12-22 20:00] VITALS: BP 134/85
[2019-12-22] MEDS ORDERED: VOLTAREN100 GM T (22:19)
[2019-12-23] VITALS: BP 137/70
[2019-12-23 04:00] VITALS: BP 116/69
[2019-12-23 05:17] LABS: BUN 11 mg/dl (7-24); CHLORIDE 106 mmol/L (98-107); PHOSPHOROUS 4.5 mg/dL (2.5-4.9); SODIUM 139 mmol/L (136-145)
[2019-12-23 05:55] LABS: BASO # 0.1 10*3/uL (0.0-0.1); BASO % 0.9 % (0.0-1.0); EOS # 0.1 10*3/uL (0.0-0.4); EOS % 1.8 % (1.0-4.0); HEMATOCRIT 41.5 % (37.0-47.0); HEMOGLOBIN 13.3 g/dl (12.0-16.0); LYMPH # 2.9 10*3/uL (1.3-4.4); LYMPH % 37.4 % (27.0-41.0); MEAN CELL VOLUME 94.5 fl (81.0-99.0); MEAN CORPUSCULAR HGB 30.3 pg (27.0-31.0); MEAN PLATELET VOLUME 10.5 fl (9.6-12.3); MONO # 0.5 10*3/uL (0.1-1.0); MONO % 5.7 % (3.0-9.0); NEUT # 4.2 10*3/uL (2.3-7.9); NEUT % 53.9 % (47.0-73.0); PLATELET COUNT AUTOMATED 212 10*3/uL (130-400); RED BLOOD COUNT 4.39 10*6/uL (4.10-5.10); RED CELL DISTRI WIDTH 13.6 % (0-14.5); WHITE BLOOD COUNT 7.8 10*3/uL (4.8-10.8)
[2019-12-23 08:00] VITALS: BP 119/80
[2019-12-23 12:00] VITALS: BP 133/85
[2019-12-23] MEDS ORDERED: ALBUTEROL S5 MG/1 ML NEB (14:15)
[2019-12-23] MEDS ORDERED: PLAQUENIL200 MG PO (14:19)
== END 2019-12-23 16:00 | disposition home or self-care (01) | DRG 139 ==
LOC: ED 12:37 → 5E 17:39 → EDHOLD 17:39 → 5E 18:07
PROVIDERS: Emergency Medicine; Student in an Organized Health Care Education/Training Program; ADMIT Internal Medicine
DX: J18.9 Pneumonia, unspecified organism (principal); J44.1 Chronic obstructive pulmonary disease with (acute) exacerbation; E44.0 Moderate protein-calorie malnutrition; I10 Essential (primary) hypertension; E78.5 Hyperlipidemia, unspecified; E66.01 Morbid (severe) obesity due to excess calories; L40.50 Arthropathic psoriasis, unspecified; M79.7 Fibromyalgia; E55.9 Vitamin D deficiency, unspecified; G62.9 Polyneuropathy, unspecified; J44.0 Chronic obstructive pulmonary disease with (acute) lower respiratory infection; J45.20 Mild intermittent asthma, uncomplicated; Z90.49 Acquired absence of other specified parts of digestive tract; Z03.818 Encounter for observation for suspected exposure to other biological agents ruled out; Z68.41 Body mass index [BMI] 40.0-44.9, adult

== ENCOUNTER → 2020-04-18 | Outpatient (CLI) | payer OTHER ==
[~2020-04-18] MED LIST changes: +MULTIVITAMINS1 EAC5 PO; +ONDANSETRON HYDR4 M1 PO; +OTEZLA30 MG PO; +PLAQUENIL200 MG PO; +VOLTAREN100 GM T
== END ==
LOC: RESCLI 03:23
DX: L40.50 Arthropathic psoriasis, unspecified (principal); M79.7 Fibromyalgia; H81.10 Benign paroxysmal vertigo, unspecified ear; I10 Essential (primary) hypertension; M19.90 Unspecified osteoarthritis, unspecified site; F41.9 Anxiety disorder, unspecified; F32.9 Major depressive disorder, single episode, unspecified; E55.9 Vitamin D deficiency, unspecified; G43.919 Migraine, unspecified, intractable, without status migrainosus; J30.2 Other seasonal allergic rhinitis; G47.00 Insomnia, unspecified

== ENCOUNTER → 2020-05-26 | Outpatient (CLI) | payer OTHER | END | disposition home or self-care (01) | LOC: RESCLI 03:19 | PROVIDERS: ATTEND Internal Medicine | DX: L40.9 Psoriasis, unspecified (principal); L40.50 Arthropathic psoriasis, unspecified; E78.5 Hyperlipidemia, unspecified; M19.90 Unspecified osteoarthritis, unspecified site; R52 Pain, unspecified; F32.9 Major depressive disorder, single episode, unspecified; G47.00 Insomnia, unspecified; H81.10 Benign paroxysmal vertigo, unspecified ear; I10 Essential (primary) hypertension; M79.7 Fibromyalgia; G43.919 Migraine, unspecified, intractable, without status migrainosus; E55.9 Vitamin D deficiency, unspecified; R11.0 Nausea; Z68.42 Body mass index [BMI] 45.0-49.9, adult; Z79.899 Other long term (current) drug therapy; Z90.49 Acquired absence of other specified parts of digestive tract; Z98.890 Other specified postprocedural states ==

== ENCOUNTER → 2020-07-25 | Outpatient (CLI) | payer OTHER | END | disposition home or self-care (01) | LOC: COVID19 00:53 | PROVIDERS: ATTEND Student in an Organized Health Care Education/Training Program | DX: Z20.828 Contact with and (suspected) exposure to other viral communicable diseases (principal) ==

== ENCOUNTER → 2020-08-02 | Outpatient (CLI) | payer OTHER ==
[2020-08-02 10:20] LABS: CHOLESTEROL 247 mg/dL (<200); HDL CHOLESTEROL 52 mg/dl (40-60); LDL CHOLESTEROL 165 mg/dL (9-159); TRIGLYCERIDES 152 mg/dl (<150); VLDL CHOLESTEROL 30 mg/dL (6-40)
== END | disposition home or self-care (01) ==
LOC: RESCLI 02:22
PROVIDERS: Hospitalist; ATTEND Internal Medicine
DX: Z23 Encounter for immunization (principal); L40.9 Psoriasis, unspecified; E78.5 Hyperlipidemia, unspecified; M19.90 Unspecified osteoarthritis, unspecified site; R52 Pain, unspecified; F32.9 Major depressive disorder, single episode, unspecified; G47.00 Insomnia, unspecified; H81.10 Benign paroxysmal vertigo, unspecified ear; I11.0 Hypertensive heart disease with heart failure; I10 Essential (primary) hypertension; M79.7 Fibromyalgia; G43.919 Migraine, unspecified, intractable, without status migrainosus; E55.9 Vitamin D deficiency, unspecified; R11.0 Nausea; J30.2 Other seasonal allergic rhinitis

== ENCOUNTER 2020-11-15 06:44 | Observation (INO) | payer OTHER ==
[~2020-11-15] VITALS: Ht 160 cm; Wt 113.9 kg
[2020-11-15 13:10] VITALS: BP 132/86
[2020-11-15 13:26] LABS: BASO % 0.5 % (0.0-1.0); EOS # 0.2 10*3/uL (0.0-0.4); EOS % 1.7 % (1.0-4.0); HEMATOCRIT 46.1 % (37.0-47.0); LYMPH # 2.1 10*3/uL (1.3-4.4); LYMPH % 23.3 % (27.0-41.0); MEAN CELL VOLUME 93.9 fl (81.0-99.0); MEAN CORPUSCULAR HGB 29.9 pg (27.0-31.0); MEAN CORPUSCULAR HGB CONC 31.9 g/dl (33.0-37.0); MEAN PLATELET VOLUME 9.8 fl (9.6-12.3); MONO # 0.4 10*3/uL (0.1-1.0); MONO % 4.8 % (3.0-9.0); NEUT # 6.1 10*3/uL (2.3-7.9); NEUT % 69.6 % (47.0-73.0); PLATELET COUNT AUTOMATED 221 10*3/uL (130-400); RED BLOOD COUNT 4.91 10*6/uL (4.10-5.10); RED CELL DISTRI WIDTH 13.6 % (0-14.5); WHITE BLOOD COUNT 8.8 10*3/uL (4.8-10.8)
[2020-11-15 13:38] LABS: ACT PARTIAL THROMBO TIME 24.3 SECONDS (20.0-32.1); INTERNATIONAL NORM RATIO 0.9 (2.0-3.5)
[2020-11-15 13:42] LABS: ALBUMIN 3.6 gm/dl (3.1-4.5); ALKALINE PHOSPHATASE 87 U/L (45-117); BUN 9 mg/dl (7-24); CHLORIDE 106 mmol/L (98-107); CREATININE 0.76 mg/dL (0.55-1.02); POTASSIUM 4.1 mmol/L (3.5-5.1); SGOT/AST 18 IU/L (3-35); SGPT/ALT 23 U/L (12-78); SODIUM 138 mmol/L (136-145); TOTAL PROTEIN 7.6 gm/dL (6.4-8.2)
[2020-11-15 13:48] LABS: TROPONIN I < 0.015 ng/ml (<0.045)
[2020-11-15 16:00] VITALS: BP 128/77
[2020-11-15 16:27] LABS: BILIRUBIN Negative (Negative); BLOOD Negative (Negative); CLARITY Cloudy (Clear); COLOR Yellow (Yellow); GLUCOSE Negative (Negative); KETONE Negative (Negative); LEUKO ESTERASE 2+ (Negative); NITRITE Negative (Negative); PH 6.5 (4.5-8.0); UROBILINOGEN 0.2 E.U./dl (0.0-1.0)
[2020-11-15 16:54] LABS: BACTERIA 2+; EPITHELIAL CELLS 21-30; WBC 21-30 wbc/hpf (0-5)
[2020-11-15] MEDS ORDERED: TALTZ AUTO80 MG/1 M1 SQ (18:01)
[2020-11-15] MEDS ORDERED: METHOTREXA25 MG/1 M6 IM (18:02)
[2020-11-15] MEDS ORDERED: MELOXICAM15 MG PO (18:04)
[2020-11-15 20:00] VITALS: BP 154/91
[2020-11-16] VITALS: BP 155/94
[2020-11-16 04:00] VITALS: BP 121/76
[2020-11-16] MEDS ORDERED: IMITREX50 MG PO (04:02)
[2020-11-16 06:19] LABS: BASO # 0.1 10*3/uL (0.0-0.1); BASO % 0.8 % (0.0-1.0); EOS # 0.2 10*3/uL (0.0-0.4); EOS % 2.6 % (1.0-4.0); HEMATOCRIT 40.8 % (37.0-47.0); LYMPH # 2.5 10*3/uL (1.3-4.4); LYMPH % 34.3 % (27.0-41.0); MEAN CELL VOLUME 96.2 fl (81.0-99.0); MEAN CORPUSCULAR HGB 30.4 pg (27.0-31.0); MEAN CORPUSCULAR HGB CONC 31.6 g/dl (33.0-37.0); MEAN PLATELET VOLUME 10.4 fl (9.6-12.3); MONO # 0.4 10*3/uL (0.1-1.0); MONO % 4.9 % (3.0-9.0); NEUT # 4.1 10*3/uL (2.3-7.9); NEUT % 57.3 % (47.0-73.0); PLATELET COUNT AUTOMATED 190 10*3/uL (130-400); RED BLOOD COUNT 4.24 10*6/uL (4.10-5.10); RED CELL DISTRI WIDTH 13.7 % (0-14.5); WHITE BLOOD COUNT 7.2 10*3/uL (4.8-10.8)
[2020-11-16 06:37] LABS: CHLORIDE 107 mmol/L (98-107); POTASSIUM 3.8 mmol/L (3.5-5.1); SODIUM 140 mmol/L (136-145)
[2020-11-16 06:51] LABS: ALKALINE PHOSPHATASE 77 U/L (45-117); BUN 14 mg/dl (7-24); CHOLESTEROL 217 mg/dL (<200); CREATININE 0.82 mg/dL (0.55-1.02); FREE T4 0.84 ng/dl (0.76-1.46); HDL CHOLESTEROL 43 mg/dl (40-60); LDL CHOLESTEROL 149 mg/dL (9-159); SGOT/AST 11 IU/L (3-35); SGPT/ALT 17 U/L (12-78); TOTAL PROTEIN 6.3 gm/dL (6.4-8.2); TRIGLYCERIDES 125 mg/dl (<150); VLDL CHOLESTEROL 25 mg/dL (6-40)
[2020-11-16 08:00] VITALS: BP 151/78
[2020-11-16 12:00] VITALS: BP 135/73
== END 2020-11-16 15:22 | disposition home or self-care (01) ==
LOC: RESCLI 06:44 → 4E 12:19
PROVIDERS: Internal Medicine; ADMIT Internal Medicine; ATTEND Internal Medicine
DX: R07.89 Other chest pain (principal); J44.9 Chronic obstructive pulmonary disease, unspecified; M79.7 Fibromyalgia; R11.2 Nausea with vomiting, unspecified; E78.5 Hyperlipidemia, unspecified; I10 Essential (primary) hypertension; L40.50 Arthropathic psoriasis, unspecified; K92.1 Melena; R10.9 Unspecified abdominal pain; E55.9 Vitamin D deficiency, unspecified; R73.9 Hyperglycemia, unspecified

== ENCOUNTER → 2020-11-24 | Outpatient (CLI) | payer MEDICARE ==
[~2020-11-24] MED LIST changes: +IMITREX50 MG PO; +MELOXICAM15 MG PO; +METHOTREXA25 MG/1 M6 IM; +TALTZ AUTO80 MG/1 M1 SQ
[2020-11-24 12:51] LABS: BASO # 0.1 10*3/uL (0.0-0.1); BASO % 0.8 % (0.0-1.0); EOS # 0.2 10*3/uL (0.0-0.4); EOS % 2.9 % (1.0-4.0); HEMATOCRIT 44.9 % (37.0-47.0); LYMPH # 2.4 10*3/uL (1.3-4.4); LYMPH % 29.8 % (27.0-41.0); MEAN CELL VOLUME 96.8 fl (81.0-99.0); MEAN PLATELET VOLUME 10.6 fl (9.6-12.3); MONO # 0.5 10*3/uL (0.1-1.0); MONO % 6.1 % (3.0-9.0); NEUT # 4.8 10*3/uL (2.3-7.9); NEUT % 60.1 % (47.0-73.0); PLATELET COUNT AUTOMATED 238 10*3/uL (130-400); RED BLOOD COUNT 4.64 10*6/uL (4.10-5.10); RED CELL DISTRI WIDTH 13.6 % (0-14.5); WHITE BLOOD COUNT 7.9 10*3/uL (4.8-10.8)
== END | disposition home or self-care (01) ==
LOC: RESCLI 00:49
PROVIDERS: Internal Medicine; ATTEND Internal Medicine Nephrology
DX: K92.1 Melena (principal); K21.9 Gastro-esophageal reflux disease without esophagitis; M19.90 Unspecified osteoarthritis, unspecified site; L40.9 Psoriasis, unspecified; M54.2 Cervicalgia; Z90.49 Acquired absence of other specified parts of digestive tract; Z79.899 Other long term (current) drug therapy; Z82.49 Family history of ischemic heart disease and other diseases of the circulatory system; Z80.3 Family history of malignant neoplasm of breast; Z88.8 Allergy status to other drugs, medicaments and biological substances

== ENCOUNTER → 2020-12-19 | Outpatient (CLI) | payer MEDICARE | END | disposition home or self-care (01) | LOC: RESCLI 00:25 | PROVIDERS: ATTEND Internal Medicine Nephrology | DX: L40.50 Arthropathic psoriasis, unspecified (principal); K29.61 Other gastritis with bleeding; K22.10 Ulcer of esophagus without bleeding; K57.90 Diverticulosis of intestine, part unspecified, without perforation or abscess without bleeding; K64.9 Unspecified hemorrhoids; G47.00 Insomnia, unspecified; L40.9 Psoriasis, unspecified; M79.7 Fibromyalgia; H81.10 Benign paroxysmal vertigo, unspecified ear; E78.5 Hyperlipidemia, unspecified; Z79.899 Other long term (current) drug therapy; Z90.49 Acquired absence of other specified parts of digestive tract; Z98.890 Other specified postprocedural states; Z88.0 Allergy status to penicillin ==

== ENCOUNTER → 2021-01-25 | Outpatient (CLI) | payer MEDICARE ==
[2021-01-25 11:45] LABS: BASO # 0.1 10*3/uL (0.0-0.1); BASO % 0.5 % (0.0-1.0); EOS # 0.2 10*3/uL (0.0-0.4); EOS % 2.3 % (1.0-4.0); LYMPH # 2.1 10*3/uL (1.3-4.4); LYMPH % 20.5 % (27.0-41.0); MEAN CELL VOLUME 94.6 fl (81.0-99.0); MEAN CORPUSCULAR HGB 29.9 pg (27.0-31.0); MEAN CORPUSCULAR HGB CONC 31.6 g/dl (33.0-37.0); MEAN PLATELET VOLUME 10.2 fl (9.6-12.3); MONO # 0.7 10*3/uL (0.1-1.0); MONO % 6.3 % (3.0-9.0); NEUT # 7.3 10*3/uL (2.3-7.9); PLATELET COUNT AUTOMATED 213 10*3/uL (130-400); RED BLOOD COUNT 4.65 10*6/uL (4.10-5.10); RED CELL DISTRI WIDTH 14.3 % (0-14.5); WHITE BLOOD COUNT 10.4 10*3/uL (4.8-10.8)
[2021-01-25 12:34] LABS: ALBUMIN 3.5 gm/dl (3.1-4.5); BUN 10 mg/dl (7-24); CHLORIDE 105 mmol/L (98-107); SGOT/AST 14 IU/L (3-35); SODIUM 138 mmol/L (136-145)
[2021-01-25 12:41] LABS: VITAMIN D, 25-HYDROXY 32.1 ng/mL (30-100)
[2021-01-25 12:46] LABS: ALKALINE PHOSPHATASE 86 U/L (45-117); CHOLESTEROL 258 mg/dL (<200); CREATININE 0.75 mg/dL (0.55-1.02); LDL CHOLESTEROL 171 mg/dL (9-159); SGPT/ALT 21 U/L (12-78); TRIGLYCERIDES 140 mg/dl (<150)
== END | disposition home or self-care (01) ==
LOC: RESCLI 03:25
PROVIDERS: Hospitalist; ATTEND Internal Medicine
DX: K29.61 Other gastritis with bleeding (principal); I10 Essential (primary) hypertension; K22.10 Ulcer of esophagus without bleeding; K57.90 Diverticulosis of intestine, part unspecified, without perforation or abscess without bleeding; K64.9 Unspecified hemorrhoids; G47.00 Insomnia, unspecified; L40.50 Arthropathic psoriasis, unspecified; L40.9 Psoriasis, unspecified; M79.7 Fibromyalgia; H81.10 Benign paroxysmal vertigo, unspecified ear; E78.5 Hyperlipidemia, unspecified; J30.2 Other seasonal allergic rhinitis; F41.9 Anxiety disorder, unspecified; F32.9 Major depressive disorder, single episode, unspecified; E55.9 Vitamin D deficiency, unspecified; G89.29 Other chronic pain; Z68.42 Body mass index [BMI] 45.0-49.9, adult; Z79.899 Other long term (current) drug therapy; Z98.890 Other specified postprocedural states; Z90.49 Acquired absence of other specified parts of digestive tract; Z88.8 Allergy status to other drugs, medicaments and biological substances

== ENCOUNTER → 2021-03-01 | Outpatient (CLI) | payer MEDICARE | END | disposition home or self-care (01) | LOC: RESCLI 01:01 | PROVIDERS: ATTEND Internal Medicine Nephrology | DX: J01.10 Acute frontal sinusitis, unspecified (principal); K22.10 Ulcer of esophagus without bleeding; K29.61 Other gastritis with bleeding; K57.90 Diverticulosis of intestine, part unspecified, without perforation or abscess without bleeding; K64.9 Unspecified hemorrhoids; G47.00 Insomnia, unspecified; L40.50 Arthropathic psoriasis, unspecified; L40.9 Psoriasis, unspecified; M79.7 Fibromyalgia; H81.10 Benign paroxysmal vertigo, unspecified ear; E78.5 Hyperlipidemia, unspecified; I10 Essential (primary) hypertension; J30.2 Other seasonal allergic rhinitis; F41.9 Anxiety disorder, unspecified; F32.9 Major depressive disorder, single episode, unspecified; E55.9 Vitamin D deficiency, unspecified; G89.29 Other chronic pain; Z68.42 Body mass index [BMI] 45.0-49.9, adult; Z79.899 Other long term (current) drug therapy; Z88.8 Allergy status to other drugs, medicaments and biological substances; Z90.49 Acquired absence of other specified parts of digestive tract ==

== ENCOUNTER → 2021-04-05 | Outpatient (CLI) | payer MEDICARE, MEDICAID ==
[2021-04-05 14:15] LABS: BASO # 0.1 10*3/uL (0.0-0.1); BASO % 0.9 % (0.0-1.0); EOS # 0.2 10*3/uL (0.0-0.4); EOS % 1.8 % (1.0-4.0); HEMATOCRIT 42.6 % (37.0-47.0); LYMPH # 2.2 10*3/uL (1.3-4.4); LYMPH % 26.9 % (27.0-41.0); MEAN CORPUSCULAR HGB 30.7 pg (27.0-31.0); MEAN CORPUSCULAR HGB CONC 32.6 g/dl (33.0-37.0); MEAN PLATELET VOLUME 10.5 fl (9.6-12.3); MONO # 0.3 10*3/uL (0.1-1.0); MONO % 3.5 % (3.0-9.0); NEUT # 5.5 10*3/uL (2.3-7.9); NEUT % 66.7 % (47.0-73.0); PLATELET COUNT AUTOMATED 232 10*3/uL (130-400); RED BLOOD COUNT 4.53 10*6/uL (4.10-5.10); WHITE BLOOD COUNT 8.2 10*3/uL (4.8-10.8)
== END | disposition home or self-care (01) ==
LOC: RESCLI 00:47 → RAD 00:47 → RESCLI 10:07
PROVIDERS: Hospitalist; ATTEND Internal Medicine Nephrology
DX: M17.12 Unilateral primary osteoarthritis, left knee (principal); M25.762 Osteophyte, left knee; M25.862 Other specified joint disorders, left knee; K57.90 Diverticulosis of intestine, part unspecified, without perforation or abscess without bleeding; K22.10 Ulcer of esophagus without bleeding; K64.9 Unspecified hemorrhoids; G47.00 Insomnia, unspecified; L40.50 Arthropathic psoriasis, unspecified; L40.9 Psoriasis, unspecified; M79.9 Soft tissue disorder, unspecified; H81.10 Benign paroxysmal vertigo, unspecified ear; E78.5 Hyperlipidemia, unspecified; J30.2 Other seasonal allergic rhinitis; I10 Essential (primary) hypertension; F41.9 Anxiety disorder, unspecified; F32.9 Major depressive disorder, single episode, unspecified; E55.9 Vitamin D deficiency, unspecified; G89.29 Other chronic pain; K29.50 Unspecified chronic gastritis without bleeding; Z68.42 Body mass index [BMI] 45.0-49.9, adult

== ENCOUNTER → 2021-05-17 | Outpatient (CLI) | payer MEDICARE, MEDICAID | END | disposition home or self-care (01) | LOC: LAB 00:12 → COVID19 00:12 | PROVIDERS: ATTEND Internal Medicine | DX: Z11.52 Encounter for screening for COVID-19 (principal) ==

== ENCOUNTER → 2021-05-31 | Outpatient (CLI) | payer MEDICARE, MEDICAID | END | disposition home or self-care (01) | LOC: RESCLI 01:09 | PROVIDERS: ATTEND Internal Medicine Nephrology | DX: M25.562 Pain in left knee (principal); G47.00 Insomnia, unspecified; L40.50 Arthropathic psoriasis, unspecified; L40.9 Psoriasis, unspecified; M79.7 Fibromyalgia; H81.10 Benign paroxysmal vertigo, unspecified ear; E78.5 Hyperlipidemia, unspecified; J30.2 Other seasonal allergic rhinitis; I10 Essential (primary) hypertension; F41.9 Anxiety disorder, unspecified; F32.9 Major depressive disorder, single episode, unspecified; E55.9 Vitamin D deficiency, unspecified; G89.29 Other chronic pain; K29.50 Unspecified chronic gastritis without bleeding; K22.10 Ulcer of esophagus without bleeding; K57.90 Diverticulosis of intestine, part unspecified, without perforation or abscess without bleeding; K64.9 Unspecified hemorrhoids; Z79.899 Other long term (current) drug therapy ==

== ENCOUNTER → 2021-08-02 | Outpatient (CLI) | payer MEDICARE, MEDICAID | END | disposition home or self-care (01) | LOC: RESCLI 00:56 | PROVIDERS: ATTEND Internal Medicine Nephrology | DX: Z23 Encounter for immunization (principal); K57.90 Diverticulosis of intestine, part unspecified, without perforation or abscess without bleeding; K64.9 Unspecified hemorrhoids; G47.00 Insomnia, unspecified; L40.50 Arthropathic psoriasis, unspecified; L40.9 Psoriasis, unspecified; M79.7 Fibromyalgia; H81.10 Benign paroxysmal vertigo, unspecified ear; E78.5 Hyperlipidemia, unspecified; Z68.42 Body mass index [BMI] 45.0-49.9, adult; J30.2 Other seasonal allergic rhinitis; I10 Essential (primary) hypertension; F41.9 Anxiety disorder, unspecified; F32.9 Major depressive disorder, single episode, unspecified; E55.9 Vitamin D deficiency, unspecified; G89.29 Other chronic pain; K29.50 Unspecified chronic gastritis without bleeding; S83.401D Sprain of unspecified collateral ligament of right knee, subsequent encounter; X58.XXXD Exposure to other specified factors, subsequent encounter; Z90.49 Acquired absence of other specified parts of digestive tract; Z98.890 Other specified postprocedural states; Z79.899 Other long term (current) drug therapy ==

== ENCOUNTER → 2021-09-20 | Outpatient (CLI) | payer MEDICARE, MEDICAID | END | disposition home or self-care (01) | LOC: RESCLI 01:12 | PROVIDERS: ATTEND Internal Medicine Nephrology | DX: K57.90 Diverticulosis of intestine, part unspecified, without perforation or abscess without bleeding (principal); K64.9 Unspecified hemorrhoids; G47.00 Insomnia, unspecified; L40.50 Arthropathic psoriasis, unspecified; L40.9 Psoriasis, unspecified; M79.7 Fibromyalgia; H81.10 Benign paroxysmal vertigo, unspecified ear; E78.5 Hyperlipidemia, unspecified; J30.2 Other seasonal allergic rhinitis; I10 Essential (primary) hypertension; F41.9 Anxiety disorder, unspecified; F32.9 Major depressive disorder, single episode, unspecified; E55.9 Vitamin D deficiency, unspecified; G89.29 Other chronic pain; A08.4 Viral intestinal infection, unspecified; Z79.899 Other long term (current) drug therapy; Z68.42 Body mass index [BMI] 45.0-49.9, adult ==

== ENCOUNTER → 2021-12-06 | Outpatient (CLI) | payer MEDICARE, MEDICAID | END | disposition home or self-care (01) | LOC: RESCLI 00:27 | PROVIDERS: ATTEND Internal Medicine Nephrology | DX: I10 Essential (primary) hypertension (principal); G47.33 Obstructive sleep apnea (adult) (pediatric); J30.2 Other seasonal allergic rhinitis; Z79.899 Other long term (current) drug therapy ==

== ENCOUNTER → 2022-01-04 | Outpatient (CLI) | payer MEDICARE, MEDICAID | END | disposition home or self-care (01) | LOC: RESCLI 10:39 | PROVIDERS: ATTEND Internal Medicine | DX: S51.011A Laceration without foreign body of right elbow, initial encounter (principal); Z23 Encounter for immunization; Z88.8 Allergy status to other drugs, medicaments and biological substances; X58.XXXA Exposure to other specified factors, initial encounter; Y93.89 Activity, other specified; Y92.89 Other specified places as the place of occurrence of the external cause; Y99.8 Other external cause status; Z79.899 Other long term (current) drug therapy ==

== ENCOUNTER → 2022-01-10 | Outpatient (CLI) | payer MEDICARE, MEDICAID | END | disposition home or self-care (01) | LOC: RESCLI 02:14 | PROVIDERS: ATTEND Internal Medicine Nephrology | DX: I10 Essential (primary) hypertension (principal); K21.9 Gastro-esophageal reflux disease without esophagitis; G89.29 Other chronic pain; L40.50 Arthropathic psoriasis, unspecified; L40.9 Psoriasis, unspecified; M79.7 Fibromyalgia; J30.2 Other seasonal allergic rhinitis; G47.00 Insomnia, unspecified; Z79.899 Other long term (current) drug therapy; Z88.8 Allergy status to other drugs, medicaments and biological substances ==

== ENCOUNTER → 2022-02-07 | Outpatient (CLI) | payer MEDICARE, MEDICAID | END | disposition home or self-care (01) | LOC: RESCLI 00:36 | PROVIDERS: ATTEND Internal Medicine Nephrology | DX: G89.29 Other chronic pain (principal); K21.9 Gastro-esophageal reflux disease without esophagitis; H81.10 Benign paroxysmal vertigo, unspecified ear; G47.00 Insomnia, unspecified; I10 Essential (primary) hypertension; J30.2 Other seasonal allergic rhinitis; M79.7 Fibromyalgia; L40.50 Arthropathic psoriasis, unspecified; L40.9 Psoriasis, unspecified; Z68.42 Body mass index [BMI] 45.0-49.9, adult; Z88.8 Allergy status to other drugs, medicaments and biological substances; Z90.49 Acquired absence of other specified parts of digestive tract; Z79.899 Other long term (current) drug therapy ==

== ENCOUNTER → 2022-02-14 | Outpatient (CLI) | payer MEDICARE, MEDICAID ==
[~2022-02-14] MED LIST changes: +DOXYCYCLINE MO100 MG PO; +EMBREL SQ; +[UNRECOGNIZED DRUG - OTHER] SQ
== END | disposition home or self-care (01) ==
LOC: RESCLI 14:24
PROVIDERS: ATTEND Internal Medicine Nephrology
DX: L40.50 Arthropathic psoriasis, unspecified (principal); L73.9 Follicular disorder, unspecified; Z79.899 Other long term (current) drug therapy

== ENCOUNTER → 2022-02-28 | Outpatient (CLI) | payer MEDICARE, MEDICAID | END | disposition home or self-care (01) | LOC: RESCLI 01:53 | PROVIDERS: ATTEND Internal Medicine Nephrology | DX: S82.142A Displaced bicondylar fracture of left tibia, initial encounter for closed fracture (principal); L73.9 Follicular disorder, unspecified; G89.29 Other chronic pain; K21.9 Gastro-esophageal reflux disease without esophagitis; H81.10 Benign paroxysmal vertigo, unspecified ear; G47.00 Insomnia, unspecified; J30.2 Other seasonal allergic rhinitis; M79.7 Fibromyalgia; L40.9 Psoriasis, unspecified; Z68.42 Body mass index [BMI] 45.0-49.9, adult; I10 Essential (primary) hypertension; Z79.899 Other long term (current) drug therapy; Z88.8 Allergy status to other drugs, medicaments and biological substances; X58.XXXA Exposure to other specified factors, initial encounter; Y93.89 Activity, other specified; Y92.89 Other specified places as the place of occurrence of the external cause; Y99.8 Other external cause status ==

== ENCOUNTER → 2022-03-21 | Outpatient (CLI) | payer MEDICARE, MEDICAID | END | disposition home or self-care (01) | LOC: RESCLI 02:30 | PROVIDERS: ATTEND Internal Medicine Nephrology | DX: S82.142A Displaced bicondylar fracture of left tibia, initial encounter for closed fracture (principal); L40.50 Arthropathic psoriasis, unspecified; L73.9 Follicular disorder, unspecified; K21.9 Gastro-esophageal reflux disease without esophagitis; H81.10 Benign paroxysmal vertigo, unspecified ear; G47.00 Insomnia, unspecified; G89.29 Other chronic pain; I10 Essential (primary) hypertension; J30.2 Other seasonal allergic rhinitis; M79.7 Fibromyalgia; Z68.42 Body mass index [BMI] 45.0-49.9, adult; Z79.899 Other long term (current) drug therapy; L40.9 Psoriasis, unspecified; Z79.1 Long term (current) use of non-steroidal anti-inflammatories (NSAID); Z79.52 Long term (current) use of systemic steroids; Z90.49 Acquired absence of other specified parts of digestive tract; Z88.8 Allergy status to other drugs, medicaments and biological substances; Z79.83 Long term (current) use of bisphosphonates; X58.XXXA Exposure to other specified factors, initial encounter; Y93.89 Activity, other specified; Y92.89 Other specified places as the place of occurrence of the external cause; Y99.8 Other external cause status ==

== ENCOUNTER → 2022-06-05 | Outpatient (CLI) | payer MEDICARE, MEDICAID | END | disposition home or self-care (01) | LOC: RESCLI 08:02 | PROVIDERS: ATTEND Internal Medicine | DX: I10 Essential (primary) hypertension (principal); K21.9 Gastro-esophageal reflux disease without esophagitis; J20.9 Acute bronchitis, unspecified; M79.7 Fibromyalgia; H81.10 Benign paroxysmal vertigo, unspecified ear; G47.00 Insomnia, unspecified; G89.29 Other chronic pain; J30.2 Other seasonal allergic rhinitis; L40.50 Arthropathic psoriasis, unspecified; Z88.8 Allergy status to other drugs, medicaments and biological substances; Z90.49 Acquired absence of other specified parts of digestive tract; Z79.899 Other long term (current) drug therapy ==

== ENCOUNTER → 2022-06-29 | Outpatient (CLI) | payer MEDICARE, MEDICAID ==
[2022-06-29 08:42] LABS: BASO % 0.4 % (0.0-1.0); EOS # 0.2 10*3/uL (0.0-0.4); EOS % 3.3 % (1.0-4.0); HEMATOCRIT 41.6 % (37.0-47.0); LYMPH # 1.8 10*3/uL (1.3-4.4); LYMPH % 26.4 % (27.0-41.0); MEAN CELL VOLUME 95.2 fl (81.0-99.0); MEAN CORPUSCULAR HGB 30.9 pg (27.0-31.0); MEAN CORPUSCULAR HGB CONC 32.5 g/dl (33.0-37.0); MEAN PLATELET VOLUME 9.7 fl (9.6-12.3); MONO # 0.4 10*3/uL (0.1-1.0); MONO % 5.8 % (3.0-9.0); NEUT # 4.2 10*3/uL (2.3-7.9); NEUT % 63.7 % (47.0-73.0); PLATELET COUNT AUTOMATED 195 10*3/uL (130-400); RED BLOOD COUNT 4.37 10*6/uL (4.10-5.10); RED CELL DISTRI WIDTH 13.4 % (0-14.5); WHITE BLOOD COUNT 6.7 10*3/uL (4.8-10.8)
[2022-06-29 09:02] LABS: CHLORIDE 107 mmol/L (98-107); POTASSIUM 4.4 mmol/L (3.5-5.1); SODIUM 137 mmol/L (136-145)
[2022-06-29 09:11] LABS: ALKALINE PHOSPHATASE 84 U/L (45-117); BUN 9 mg/dl (7-24); CHOLESTEROL 232 mg/dL (<200); LDL CHOLESTEROL 160 mg/dL (9-159); SGOT/AST 15 IU/L (3-35); SGPT/ALT 19 U/L (12-78); TOTAL PROTEIN 6.8 gm/dL (6.4-8.2); TRIGLYCERIDES 120 mg/dl (<150)
== END | disposition home or self-care (01) ==
LOC: LAB 08:08
PROVIDERS: Student in an Organized Health Care Education/Training Program; ATTEND Internal Medicine
DX: I10 Essential (primary) hypertension (principal); K21.9 Gastro-esophageal reflux disease without esophagitis; E55.9 Vitamin D deficiency, unspecified; Z79.899 Other long term (current) drug therapy

== ENCOUNTER → 2022-10-01 | Outpatient (CLI) | payer MEDICARE, MEDICAID | END | disposition home or self-care (01) | LOC: RESCLI 00:27 | PROVIDERS: ATTEND Internal Medicine | DX: R11.2 Nausea with vomiting, unspecified (principal); G47.00 Insomnia, unspecified; G89.29 Other chronic pain; J45.909 Unspecified asthma, uncomplicated; Z88.8 Allergy status to other drugs, medicaments and biological substances; Z90.49 Acquired absence of other specified parts of digestive tract; Z86.16 Personal history of COVID-19; Z82.49 Family history of ischemic heart disease and other diseases of the circulatory system; M19.90 Unspecified osteoarthritis, unspecified site; Z79.899 Other long term (current) drug therapy; Z98.890 Other specified postprocedural states ==

== ENCOUNTER → 2022-11-19 | Outpatient (CLI) | payer MEDICARE, MEDICAID ==
[2022-11-19 16:42] LABS: BASO # 0.1 10*3/uL (0.0-0.1); BASO % 0.6 % (0.0-1.0); EOS # 0.2 10*3/uL (0.0-0.4); HEMATOCRIT 43.2 % (37.0-47.0); LYMPH # 2.5 10*3/uL (1.3-4.4); LYMPH % 31.7 % (27.0-41.0); MEAN CELL VOLUME 98.6 fl (81.0-99.0); MEAN CORPUSCULAR HGB 31.1 pg (27.0-31.0); MEAN CORPUSCULAR HGB CONC 31.5 g/dl (33.0-37.0); MONO # 0.5 10*3/uL (0.1-1.0); MONO % 6.5 % (3.0-9.0); NEUT # 4.6 10*3/uL (2.3-7.9); NEUT % 58.9 % (47.0-73.0); PLATELET COUNT AUTOMATED 214 10*3/uL (130-400); RED BLOOD COUNT 4.38 10*6/uL (4.10-5.10); RED CELL DISTRI WIDTH 14.5 % (0-14.5); WHITE BLOOD COUNT 7.9 10*3/uL (4.8-10.8)
[2022-11-19 17:00] LABS: ALKALINE PHOSPHATASE 82 U/L (46-116); BUN 8 mg/dl (9-23); CHLORIDE 103 mmol/L (98-107); SGPT/ALT 12 U/L (10-49); TOTAL PROTEIN 6.9 gm/dL (6.0-8.0)
== END | disposition home or self-care (01) ==
LOC: RESCLI 11:32
PROVIDERS: Student in an Organized Health Care Education/Training Program; ATTEND Internal Medicine
DX: R11.2 Nausea with vomiting, unspecified (principal); I11.9 Hypertensive heart disease without heart failure; E55.9 Vitamin D deficiency, unspecified; L30.9 Dermatitis, unspecified; Z88.8 Allergy status to other drugs, medicaments and biological substances; Z98.890 Other specified postprocedural states; Z90.49 Acquired absence of other specified parts of digestive tract; Z86.16 Personal history of COVID-19; Z82.49 Family history of ischemic heart disease and other diseases of the circulatory system; Z79.899 Other long term (current) drug therapy

== ENCOUNTER → 2022-12-24 | Outpatient (CLI) | payer OTHER, MEDICAID | END | disposition home or self-care (01) | LOC: RESCLI 00:34 | PROVIDERS: ATTEND Family Medicine | DX: Z12.31 Encounter for screening mammogram for malignant neoplasm of breast (principal); I48.0 Paroxysmal atrial fibrillation; E55.9 Vitamin D deficiency, unspecified; M19.90 Unspecified osteoarthritis, unspecified site; Z86.16 Personal history of COVID-19; Z82.49 Family history of ischemic heart disease and other diseases of the circulatory system; Z98.890 Other specified postprocedural states; Z88.8 Allergy status to other drugs, medicaments and biological substances; Z79.899 Other long term (current) drug therapy ==

== ENCOUNTER → 2023-01-02 | Outpatient (CLI) | payer OTHER, MEDICAID | END | disposition home or self-care (01) | LOC: MAMMO 10:00 | PROVIDERS: ATTEND Internal Medicine | DX: M19.072 Primary osteoarthritis, left ankle and foot (principal); M85.88 Other specified disorders of bone density and structure, other site; M79.672 Pain in left foot; N60.01 Solitary cyst of right breast; R92.1 Mammographic calcification found on diagnostic imaging of breast ==

== ENCOUNTER → 2023-01-28 | Outpatient (CLI) | payer OTHER, MEDICAID | END | disposition home or self-care (01) | LOC: RESCLI 01:02 | PROVIDERS: ATTEND Internal Medicine | DX: R25.2 Cramp and spasm (principal); Z88.8 Allergy status to other drugs, medicaments and biological substances; Z79.899 Other long term (current) drug therapy; E11.9 Type 2 diabetes mellitus without complications; J45.909 Unspecified asthma, uncomplicated; Z86.16 Personal history of COVID-19; L40.9 Psoriasis, unspecified ==

== ENCOUNTER → 2023-02-25 | Outpatient (CLI) | payer OTHER, MEDICAID | END | disposition home or self-care (01) | LOC: RESCLI 01:14 | PROVIDERS: ATTEND Internal Medicine | DX: M79.7 Fibromyalgia (principal); J30.2 Other seasonal allergic rhinitis; G47.00 Insomnia, unspecified; L40.50 Arthropathic psoriasis, unspecified; R53.83 Other fatigue; M19.90 Unspecified osteoarthritis, unspecified site; K21.9 Gastro-esophageal reflux disease without esophagitis; Z88.8 Allergy status to other drugs, medicaments and biological substances; Z98.890 Other specified postprocedural states; Z82.49 Family history of ischemic heart disease and other diseases of the circulatory system; Z79.899 Other long term (current) drug therapy ==

== ENCOUNTER → 2023-04-23 | Outpatient (CLI) | payer OTHER, MEDICAID | END | disposition home or self-care (01) | LOC: RESCLI 10:34 | PROVIDERS: ATTEND Internal Medicine | DX: M79.7 Fibromyalgia (principal); R53.83 Other fatigue; K21.9 Gastro-esophageal reflux disease without esophagitis; G47.00 Insomnia, unspecified; M19.90 Unspecified osteoarthritis, unspecified site; J45.909 Unspecified asthma, uncomplicated; L40.50 Arthropathic psoriasis, unspecified; Z82.49 Family history of ischemic heart disease and other diseases of the circulatory system; Z98.890 Other specified postprocedural states; Z90.49 Acquired absence of other specified parts of digestive tract; Z86.16 Personal history of COVID-19; Z88.8 Allergy status to other drugs, medicaments and biological substances; Z79.899 Other long term (current) drug therapy ==

== ENCOUNTER → 2023-06-28 | Outpatient (CLI) | payer OTHER, MEDICAID ==
[~2023-06-28] MED LIST changes: +PHENERGAN25 M3 PO
== END | disposition home or self-care (01) ==
LOC: LAB 13:56
PROVIDERS: ATTEND Nurse Practitioner Family
DX: K52.9 Noninfective gastroenteritis and colitis, unspecified (principal)

== ENCOUNTER → 2023-07-16 | Outpatient (CLI) | payer OTHER, MEDICAID | END | disposition home or self-care (01) | LOC: RESCLI 01:18 | PROVIDERS: ATTEND Internal Medicine | DX: J45.909 Unspecified asthma, uncomplicated (principal); L40.50 Arthropathic psoriasis, unspecified; K21.9 Gastro-esophageal reflux disease without esophagitis; G47.00 Insomnia, unspecified; M19.90 Unspecified osteoarthritis, unspecified site; Z82.49 Family history of ischemic heart disease and other diseases of the circulatory system; Z88.8 Allergy status to other drugs, medicaments and biological substances; Z98.890 Other specified postprocedural states; Z86.16 Personal history of COVID-19; Z79.899 Other long term (current) drug therapy ==

== ENCOUNTER → 2023-07-24 | Outpatient (CLI) | payer OTHER, MEDICAID | END | disposition home or self-care (01) | LOC: US 09:57 | PROVIDERS: ATTEND Internal Medicine | DX: N83.202 Unspecified ovarian cyst, left side (principal); N83.8 Other noninflammatory disorders of ovary, fallopian tube and broad ligament ==

== ENCOUNTER → 2023-09-03 | Outpatient (CLI) | payer OTHER, MEDICAID | END | disposition home or self-care (01) | LOC: RESCLI 00:46 | PROVIDERS: ATTEND Emergency Medicine | DX: G47.00 Insomnia, unspecified (principal); L40.50 Arthropathic psoriasis, unspecified; K21.9 Gastro-esophageal reflux disease without esophagitis; R53.83 Other fatigue; M79.7 Fibromyalgia; J45.909 Unspecified asthma, uncomplicated; Z90.49 Acquired absence of other specified parts of digestive tract; Z98.890 Other specified postprocedural states; Z79.899 Other long term (current) drug therapy; Z82.49 Family history of ischemic heart disease and other diseases of the circulatory system; Z88.8 Allergy status to other drugs, medicaments and biological substances ==

== ENCOUNTER → 2023-10-08 | Outpatient (CLI) | payer OTHER, MEDICAID | END | disposition home or self-care (01) | LOC: RESCLI 05:27 | PROVIDERS: ATTEND Internal Medicine | DX: L40.50 Arthropathic psoriasis, unspecified (principal); M79.7 Fibromyalgia; K21.9 Gastro-esophageal reflux disease without esophagitis; M19.90 Unspecified osteoarthritis, unspecified site; G47.00 Insomnia, unspecified; J30.2 Other seasonal allergic rhinitis; Z90.49 Acquired absence of other specified parts of digestive tract; Z98.890 Other specified postprocedural states; Z83.3 Family history of diabetes mellitus; Z82.49 Family history of ischemic heart disease and other diseases of the circulatory system; Z80.3 Family history of malignant neoplasm of breast; Z80.9 Family history of malignant neoplasm, unspecified; Z88.8 Allergy status to other drugs, medicaments and biological substances ==

== ENCOUNTER → 2024-02-25 | Outpatient (CLI) | payer OTHER, MEDICAID | END | disposition home or self-care (01) | LOC: RESCLI 00:35 | PROVIDERS: ATTEND Internal Medicine | DX: Z12.4 Encounter for screening for malignant neoplasm of cervix (principal); L40.50 Arthropathic psoriasis, unspecified; R53.83 Other fatigue; M19.90 Unspecified osteoarthritis, unspecified site; M79.7 Fibromyalgia; J45.909 Unspecified asthma, uncomplicated; K21.9 Gastro-esophageal reflux disease without esophagitis; J30.2 Other seasonal allergic rhinitis; T88.7XXA Unspecified adverse effect of drug or medicament, initial encounter; Z79.899 Other long term (current) drug therapy; Z88.8 Allergy status to other drugs, medicaments and biological substances; G47.00 Insomnia, unspecified; Z98.890 Other specified postprocedural states; X58.XXXA Exposure to other specified factors, initial encounter; Y93.89 Activity, other specified; Y92.89 Other specified places as the place of occurrence of the external cause; Y99.8 Other external cause status ==

== ENCOUNTER 2025-02-04 12:50 | Emergency (ER) | payer OTHER, MEDICAID ==
[~2025-02-04] VITALS: Ht 160 cm; Wt 99.8 kg
[2025-02-04 13:35] LABS: BASO # 0.1 10*3/uL (0.0-0.1); BASO % 0.6 % (0.0-1.0); EOS # 0.2 10*3/uL (0.0-0.4); EOS % 1.7 % (1.0-4.0); HEMATOCRIT 42.7 % (37.0-47.0); MEAN CELL VOLUME 90.9 fl (81.0-99.0); MEAN CORPUSCULAR HGB 28.5 pg (27.0-31.0); MEAN CORPUSCULAR HGB CONC 31.4 g/dl (33.0-37.0); MEAN PLATELET VOLUME 10.3 fl (9.6-12.3); MONO # 0.6 10*3/uL (0.1-1.0); MONO % 6.9 % (3.0-9.0); NEUT # 6.1 10*3/uL (2.3-7.9); NEUT % 68.8 % (47.0-73.0); PLATELET COUNT AUTOMATED 186 10*3/uL (130-400); RED CELL DISTRI WIDTH 13.1 % (0-14.5); WHITE BLOOD COUNT 8.9 10*3/uL (4.8-10.8)
[2025-02-04 13:54] LABS: BUN 9 mg/dl (9-23); CHLORIDE 103 mmol/L (98-107); POTASSIUM 3.5 mmol/L (3.4-5.1)
[2025-02-04] MEDS ORDERED: SODIUM CHLORIDE 0.9% 100 ML BAG IV ONE (15:45)
[2025-02-04] MEDS ORDERED: IOHEXOL 350 MG/ML 100 ML VIAL IV ONE ×2 (15:45→16:08)
[2025-02-04] MEDS ORDERED: SODIUM CHLORIDE 0.9% 100 ML IV ONE (16:08)
[2025-02-04] MEDS ORDERED: VALTREX1000 MG PO (17:33)
== END 2025-02-04 17:51 | disposition home or self-care (01) ==
LOC: ED 12:50
PROVIDERS: Physician Assistant Medical
DX: G51.0 Bell's palsy (principal); Z79.899 Other long term (current) drug therapy; Z88.8 Allergy status to other drugs, medicaments and biological substances; Z90.49 Acquired absence of other specified parts of digestive tract; Z98.890 Other specified postprocedural states

== ENCOUNTER → 2025-02-09 | Outpatient (CLI) | payer OTHER, MEDICAID ==
[~2025-02-09] MED LIST changes: +VALTREX1000 MG PO
== END | disposition home or self-care (01) ==
LOC: RESCLI 10:02
PROVIDERS: ATTEND Internal Medicine
DX: G51.0 Bell's palsy (principal)

== ENCOUNTER → 2025-03-09 | Outpatient (CLI) | payer OTHER, MEDICAID ==
[2025-03-09 15:52] LABS: BASO # 0.1 10*3/uL (0.0-0.1); BASO % 0.9 % (0.0-1.0); EOS # 0.3 10*3/uL (0.0-0.4); HEMATOCRIT 42.6 % (37.0-47.0); MEAN CORPUSCULAR HGB 29.7 pg (27.0-31.0); MEAN CORPUSCULAR HGB CONC 31.9 g/dl (33.0-37.0); MEAN PLATELET VOLUME 10.2 fl (9.6-12.3); MONO # 0.5 10*3/uL (0.1-1.0); MONO % 5.6 % (3.0-9.0); NEUT # 4.5 10*3/uL (2.3-7.9); NEUT % 54.9 % (47.0-73.0); PLATELET COUNT AUTOMATED 235 10*3/uL (130-400); RED BLOOD COUNT 4.58 10*6/uL (4.10-5.10); RED CELL DISTRI WIDTH 13.5 % (0-14.5); WHITE BLOOD COUNT 8.1 10*3/uL (4.8-10.8)
[2025-03-09 16:17] LABS: BUN 12 mg/dl (9-23); CHLORIDE 104 mmol/L (98-107); POTASSIUM 3.9 mmol/L (3.4-5.1)
== END | disposition home or self-care (01) ==
LOC: RESCLI 01:13
PROVIDERS: ATTEND Family Medicine
DX: H53.9 Unspecified visual disturbance (principal); M19.90 Unspecified osteoarthritis, unspecified site; L40.50 Arthropathic psoriasis, unspecified; M79.7 Fibromyalgia; K21.9 Gastro-esophageal reflux disease without esophagitis; G47.00 Insomnia, unspecified; J30.2 Other seasonal allergic rhinitis; L98.9 Disorder of the skin and subcutaneous tissue, unspecified

== ENCOUNTER → 2025-05-11 | Outpatient (CLI) | payer OTHER, MEDICAID | END | disposition home or self-care (01) | LOC: RESCLI 01:04 | PROVIDERS: ATTEND Internal Medicine | DX: M79.7 Fibromyalgia (principal); G43.109 Migraine with aura, not intractable, without status migrainosus; M19.90 Unspecified osteoarthritis, unspecified site; L40.50 Arthropathic psoriasis, unspecified; R53.83 Other fatigue; K21.9 Gastro-esophageal reflux disease without esophagitis; G47.00 Insomnia, unspecified; J30.2 Other seasonal allergic rhinitis; R42 Dizziness and giddiness ==

== ENCOUNTER → 2025-06-29 | Outpatient (CLI) | payer OTHER, MEDICAID | END | disposition home or self-care (01) | LOC: RESCLI 01:08 | PROVIDERS: ATTEND Internal Medicine | DX: G43.109 Migraine with aura, not intractable, without status migrainosus (principal); M19.90 Unspecified osteoarthritis, unspecified site; L40.50 Arthropathic psoriasis, unspecified; M79.7 Fibromyalgia; R53.83 Other fatigue; K21.9 Gastro-esophageal reflux disease without esophagitis; J45.909 Unspecified asthma, uncomplicated; G47.00 Insomnia, unspecified; Z79.899 Other long term (current) drug therapy ==